=== PATIENT | female | born 1990 | race Caucasian/White ===

== ENCOUNTER 2016-12-13 17:19 | Emergency (ER) | payer SELFPAY ==
[2016-12-13] MEDS ORDERED: NS 0.9% 1000 ML* 2,000 ML IV ONE (19:30)
[2016-12-13] MEDS ORDERED: Ondansetron INJ* 2 MG/ML VIAL IV ONE (19:33)
[2016-12-13] MEDS ORDERED: Ciprofloxacin TAB* 500 MG PO ONE (20:49)
[2016-12-13] MEDS ORDERED: Ondansetron ODT TAB* 4 MG PO ONE (20:49)
[2016-12-13] MEDS ORDERED: Ibuprofen TAB* 600 MG PO ONE (20:50)
[2016-12-13 21:19] VITALS: BP 104/60
--- NOTE | 2016-12-15 16:28 | UC ---
Jossue Crouch Michael, scribed for Helen Youssef MD on 12/13/16 at 1931 . FLU HPI - HPI Summary HPI Summary: 26 y/o female comes to [facility] presenting with a diffuse BURNS that started 2 days ago. The pt reports that the BURNS is constant. She also c/o fever, n/v, nuchal crest neck pain, and constipation for the last week. The constipation was alleviated today. At [facility] her fever was 100.3. She has had a productive cough for the last 2 months. The pt denies sore throat, diarrhea, and dysuria. No one else in the pt's household is sick. - History of Current Complaint Chief Complaint: UCGI Stated Complaint: VOMITING, AND HEADACHE Time Seen by Provider: 12/13/16 19:04 Hx Obtained From: Patient, Medical Records Hx Last Menstrual Period: 1 1/2 MONTHS AGO (IRREGULAR) Onset/Duration: Sudden Onset, Still Present Severity Currently: Moderate Severity Initially: Moderate Pain Intensity: 4 Pain Scale Used: 0-10 Numeric Associated Signs & Symptoms: Positive: Negative - sore throat, diarrhea, and dysuria, Fever, Cough, Headache, Vomiting - nausea. constipation. neck pain. - Allergy/Home Medications Allergies/Adverse Reactions: Allergies Allergy/AdvReac Type Severity Reaction Status Date / Time Sulfa Drugs Allergy Rash Verified 12/13/16 18:10 PMH/Surg Hx/FS Hx/Imm Hx Psychological History Of: Reports: Anxiety - Surgical History Surgical History: None - Family History Known Family History: Positive: Hypertension, Diabetes - Social History Occupation: Employed Full-time Lives: With Family Alcohol Use: None Substance Use Type: None Substance Use Comment - Amount & Last Used: last used 2 months ago Smoking Status (MU): Current Every Day Smoker Type: Cigarettes Amount Used/How Often: 1/2 PPD Review of Systems Constitutional: Fever Respiratory: Cough Gastrointestinal: Vomiting, Other - nausea Musculoskeletal: Other: - neck pain Neurological: Headache All Other Systems Reviewed And Are Negative: Yes Physical Exam Triage Information Reviewed: Yes Appearance: Well-Nourished Vital Signs: Initial Vital Signs Temp 100.3 F 12/13/16 18:07 Pulse 102 12/13/16 18:07 Resp 16 12/13/16 18:07 BP 116/66 12/13/16 18:07 Pulse Ox 98 12/13/16 18:07 Vital Signs Reviewed: Yes Eye Exam: Normal ENT: Positive: Pharyngeal erythema, Other: - uvula midline with no sores. Neck: Positive: Other: - no meningeal signs. K/B negative Respiratory: Positive: Chest non-tender, Wheezing - bilateral, Other: - no dyspnea. no tachypnea. nml respiratory rate. Cardiovascular: Positive: Brisk Capillary Refill, Tachycardia - 102 bpm, Murmur: Sys:Grade _?_/ - 2 out of 6 Abdomen Description: Positive: Other: - no rebound. no hepatosplenomegaly.. Negative: Nontender - mild epigastric tenderness, CVA Tenderness (R), CVA Tenderness (L), Guarding Bowel Sounds: Positive: Hyperactive Musculoskeletal: Positive: Other: - diffuse non-specific lower back tenderness Neurological Exam: Normal - nonfocal. Psychological Exam: Normal - conserving easily Psychological: Positive: Age Appropriate Behavior Skin Exam: Normal - no rashes visible Flu Course/Dx - Course Course Of Treatment: No new problems in CCC. Feels better s/p IVF's. Hungry and thirsty. Able to walk. Requesting to eat. PO challenge good. BURNS better. C/o pain R flank. Reviewed urine dip (see [employer]) - + evidence infection. Cx sent. D/w pt. Sx c/w acute pyelonephritis. UCG neg. Bld glucose 115mg/ dl. Reviewed need for f/u, need to go to ED if worse or new symptoms. Questions answered to the best of my ability. - Differential Dx/Diagnosis Provider Diagnoses: Acute pyelonephritis. Volume depletion. Nausea / vomiting Discharge - Discharge Plan Condition: Improved Disposition: HOME Prescriptions: Ciprofloxacin TAB* [Cipro 500 MG TAB*] 500 mg PO BID #20 tab Ibuprofen TAB* [Motrin TAB* 600 MG] 600 mg PO Q8H PRN #30 tab PRN Reason: Pain Ondansetron ODT TAB* [Zofran Odt TAB*] 4 mg PO Q6H PRN #20 tab.odt PRN Reason: Nausea/Vomiting Patient Education Materials: Dehydration (ED), Fever in Adults (ED), Acute Pyelonephritis (ED) Forms: *Work Release Referrals: Joe Owusu DO [Primary Care Provider] - Additional Instructions: Drink plenty of water. Follow up with your primary care physician, recommend in the next 1-2 weeks. Seek medical attention sooner for worse or new problems. The documentation as recorded by the Jossue guy Michael accurately reflects the service I personally performed and the decisions made by me, Helen Youssef MD.
== END 2016-12-13 21:41 | disposition home or self-care (01) ==
LOC: UCEAST 17:19
DX: N10 Acute pyelonephritis (principal); F41.9 Anxiety disorder, unspecified; F17.210 Nicotine dependence, cigarettes, uncomplicated; E86.9 Volume depletion, unspecified; R11.2 Nausea with vomiting, unspecified; Z88.2 Allergy status to sulfonamides
CPT/HCPCS: 81003; 84702; 87086; 87502; 87651; 96360; 99212; A9270-GY; G0463; J2405

== ENCOUNTER 2017-01-09 17:02 | Emergency (ER) | payer SELFPAY ==
[2017-01-09] MEDS ORDERED: NS 0.9% 1000 ML* 1,000 ML IV ONE ×3 (19:30→23:03)
[2017-01-09] MEDS ORDERED: HYDROmorphone* 1 MG/ML 1 ML SYR IM ONE (19:30)
[2017-01-09] MEDS ORDERED: Ondansetron INJ* 2 MG/ML VIAL IV ONE (20:11)
[2017-01-09] MEDS ORDERED: HYDROmorphone* 1 MG/ML 1 ML SYR IV ONE ×2 (20:11→23:03)
[2017-01-09] MEDS ORDERED: LORazepam INJ* 2 MG/ML 1 ML VIAL IV PUSH ONE ×2 (20:12→23:30)
[2017-01-09 20:52] LABS: Hematocrit 31 % (35-47); Hemoglobin 10.3 g/dl (12.0-16.0); Mean Corpuscular HGB Conc 34 g/dl (31-36); Mean Corpuscular Hemoglobin 29 pg (27-31); Mean Corpuscular Volume 86 fL (80-97); Mean Platelet Volume 7 um3 (7.4-10.4); Red Blood Count 3.56 10^6/ul (4.0-5.4); Red Cell Distribution Width 13 % (10.5-15); White Blood Count 7.2 10^3/ul (3.5-10.8)
[2017-01-09 21:07] LABS: ALT 7 U/L (7-52); AST 12 U/L (13-39); Albumin 3.1 g/dL (3.2-5.2); Alkaline Phosphatase 47 U/L (34-104); Anion Gap 6 mmol/L (2-11); BUN/Creatinine Ratio 12.5 (8-20); Blood Urea Nitrogen 9 mg/dL (6-24); C Reactive Protein 69.52 mg/L (< 5.00); CO2 Carbon Dioxide 29 mmol/L (22-32); Calcium 8.3 mg/dL (8.6-10.3); Chloride 100 mmol/L (101-111); EGFR Non-African American 96.5 (>60); Globulin 3.1 g/dL (2-4); Glucose 108 mg/dL (70-100); Potassium 3.3 mmol/L (3.5-5.0); Sodium 135 mmol/L (133-145); Total Protein 6.2 g/dL (6.4-8.9)
[2017-01-09] MEDS ORDERED: Iohexol 350* (CONTRAST) 500 ML MDV IV ONE (21:12)
--- NOTE | 2017-01-09 22:59 | RAD ---
INDICATION: Accidental injection of heroin in the left upper extremity, now with SD finger tips. COMPARISON: None TECHNIQUE: A CT angiogram of the left forearm and hand was performed with 100 cc of Omnipaque 350. Contiguous axial sections were obtained from the elbow to the fingertips. FINDINGS: Poor image timing prevents reliable evaluation of the left upper extremity arteries. The visualized arteries include the distal brachial through the proximal digital arteries. There is likely adequate filling in the distal brachial, radial and ulnar arteries. Contrast is seen reliably filling at least as far as the proximal digital arteries. There are no drainable subcutaneous fluid collections. There is mild induration of the subcutaneous fat overlying the forearm. IMPRESSION: Grossly the left distal brachial artery, ulnar and radial arteries appear to fill adequately with contrast. Poor bolus timing, positioning and/or patient motion prevents reliable evaluation of the arteries of the Hand. If the patient is exhibiting signs and symptoms of arterial insufficiency to the hand and fingers, prompt evaluation with a vascular specialist for arteriography is advised. Findings and recommendations were discussed over the phone with Dr. Bond at 2250 hours on January 09, 2017
--- NOTE | 2017-01-10 00:03 | ED ---
Jossue Crouch Michael, scribed for Vika Bond MD on 01/09/17 at 1910 . Upper Extremity Pain - HPI Summary HPI Summary: 26 y/o female comes to the ED presenting with left hand swelling and constant pain that started one day ago at 2200. The pt reports that she was injecting heroin intravenously and missed her vein. The left hand pain is aggravated with palpation and nothing alleviates the pain. The left hand pain radiates through the LUE. The pt has a prior hx of heroin use and states using heroin 2x per day. She denies n/v. - History of Current Complaint Chief Complaint: EDExtremityUpper Stated Complaint: LT HAND SWOLLEN Hx Obtained From: Patient, Medical Records Hx Last Menstrual Period: 1 1/2 MONTHS AGO (IRREGULAR) Mechanism Of Injury: Unknown - heroin IV Onset/Duration: Started Days Ago, Still Present Timing: Constant Severity Initially: Moderate Severity Currently: Moderate Pain Location: Hand - left Aggravating Factor(s): Other - palpation Alleviating Factor(s): Nothing Associated Signs & Symptoms: Positive: Swelling, Other - left hand pain. Negative: Nausea, Vomiting - Allergies/Home Medications Allergies/Adverse Reactions: Allergies Allergy/AdvReac Type Severity Reaction Status Date / Time Sulfa Drugs Allergy Rash Verified 01/09/17 17:16 PMH/Surg Hx/FS Hx/Imm Hx Psychiatric History: Reports: Hx Anxiety Infectious Disease History: No Infectious Disease History: Reports: Hx Hepatitis - HEP C Denies: Traveled Outside the [place] in Last 30 Days - Family History Known Family History: Positive: Hypertension, Diabetes - Social History Occupation: Employed Full-time Lives: With Family Alcohol Use: None Substance Use Type: Reports: Heroin Substance Use Comment - Amount & Last Used: last used 2 months ago Smoking Status (MU): Current Every Day Smoker Type: Cigarettes Amount Used/How Often: 1/2 PPD Review of Systems Negative: Vomiting, Nausea Positive: Other - left hand pain Positive: Other - left hand swelling All Other Systems Reviewed And Are Negative: Yes Physical Exam Triage Information Reviewed: Yes Vital Signs On Initial Exam: Initial Vitals Temp Pulse Resp BP Pulse Ox 97.1 F 95 16 105/59 97 01/09/17 17:17 01/09/17 17:17 01/09/17 17:17 01/09/17 17:17 01/09/17 17:17 Vital Signs Reviewed: Yes Appearance: Positive: Well-Appearing, Pain Distress Skin: Positive: Warm, Skin Color Reflects Adequate Perfusion, Dry Eyes: Positive: EOMI, EMILY ENT: Positive: Pharynx normal, TMs normal Neck: Positive: Supple, Nontender Respiratory/Lung Sounds: Positive: Clear to Auscultation, Breath Sounds Present. Negative: Rales, Rhonchi, Wheezes Cardiovascular: Positive: Other - decreased cap refill in all fingers. good radial pulse. not able to palpate ulnar pulse due to pain. Abdomen Description: Positive: Nontender, Soft, Other: - no rebound. Negative: Distended, Guarding Bowel Sounds: Positive: Present Musculoskeletal: Positive: Strength/ROM Intact, Other - right hand swelling. Neurological: Positive: Sensory/Motor Intact, Alert, Oriented to Person Place, Time, CN Intact II-III Psychiatric: Positive: Affect/Mood Appropriate Diagnostics - Vital Signs Vital Signs Temp Pulse Resp BP Pulse Ox 01/09/17 17:17 97.1 F 95 16 105/59 97 - Laboratory Lab Results: Lab Results 01/09/17 01/09/17 01/09/17 Range/Units 20:39 20:39 20:39 WBC 7.2 (3.5-10.8) 10^3/ul RBC 3.56 L (4.0-5.4) 10^6/ul Hgb 10.3 L (12.0-16.0) g/dl Hct 31 L (35-47) % MCV 86 (80-97) fL MCH 29 (27-31) pg MCHC 34 (31-36) g/dl RDW 13 (10.5-15) % Plt Count 277 (150-450) 10^3/ul MPV 7 L (7.4-10.4) um3 Neut % (Auto) 69.5 (38-83) % Lymph % (Auto) 22.9 L (25-47) % [place] % (Auto) 6.0 (1-9) % Eos % (Auto) 1.2 (0-6) % Baso % (Auto) 0.4 (0-2) % Absolute Neuts (auto) 5.0 (1.5-7.7) 10^3/ul Absolute Lymphs (auto) 1.6 (1.0-4.8) 10^3/ul Absolute Monos (auto) 0.4 (0-0.8) 10^3/ul Absolute Eos (auto) 0.1 (0-0.6) 10^3/ul Absolute Basos (auto) 0 (0-0.2) 10^3/ul Absolute Nucleated RBC 0 10^3/ul Nucleated RBC % 0 INR (Anticoag Therapy) (0.89-1.11) Sodium 135 (133-145) mmol/L Potassium 3.3 L (3.5-5.0) mmol/L Chloride 100 L (101-111) mmol/L Carbon Dioxide 29 (22-32) mmol/L Anion Gap 6 (2-11) mmol/L BUN 9 (6-24) mg/dL Creatinine 0.72 (0.51-0.95) mg/dL Est GFR ( Amer) 124.0 (>60) Est GFR (Non-Af Amer) 96.5 (>60) BUN/Creatinine Ratio 12.5 (8-20) Glucose 108 H (70-100) mg/dL Lactic Acid 0.6 (0.5-2.0) mmol/L Calcium 8.3 L (8.6-10.3) mg/dL Total Bilirubin 0.30 (0.2-1.0) mg/dL AST 12 L (13-39) U/L ALT 7 (7-52) U/L Alkaline Phosphatase 47 (34-104) U/L C-Reactive Protein 69.52 H (< 5.00) mg/L Total Protein 6.2 L (6.4-8.9) g/dL Albumin 3.1 L (3.2-5.2) g/dL Globulin 3.1 (2-4) g/dL Albumin/Globulin Ratio 1.0 (1-3) Beta HCG, Quant < 0.60 mIU/mL 01/09/17 Range/Units 20:39 WBC (3.5-10.8) 10^3/ul RBC (4.0-5.4) 10^6/ul Hgb (12.0-16.0) g/dl Hct (35-47) % MCV (80-97) fL MCH (27-31) pg MCHC (31-36) g/dl RDW (10.5-15) % Plt Count (150-450) 10^3/ul MPV (7.4-10.4) um3 Neut % (Auto) (38-83) % Lymph % (Auto) (25-47) % [place] % (Auto) (1-9) % Eos % (Auto) (0-6) % Baso % (Auto) (0-2) % Absolute Neuts (auto) (1.5-7.7) 10^3/ul Absolute Lymphs (auto) (1.0-4.8) 10^3/ul Absolute Monos (auto) (0-0.8) 10^3/ul Absolute Eos (auto) (0-0.6) 10^3/ul Absolute Basos (auto) (0-0.2) 10^3/ul Absolute Nucleated RBC 10^3/ul Nucleated RBC % INR (Anticoag Therapy) 1.21 H (0.89-1.11) Sodium (133-145) mmol/L Potassium (3.5-5.0) mmol/L Chloride (101-111) mmol/L Carbon Dioxide (22-32) mmol/L Anion Gap (2-11) mmol/L BUN (6-24) mg/dL Creatinine (0.51-0.95) mg/dL Est GFR ( Amer) (>60) Est GFR (Non-Af Amer) (>60) BUN/Creatinine Ratio (8-20) Glucose (70-100) mg/dL Lactic Acid (0.5-2.0) mmol/L Calcium (8.6-10.3) mg/dL Total Bilirubin (0.2-1.0) mg/dL AST (13-39) U/L ALT (7-52) U/L Alkaline Phosphatase (34-104) U/L C-Reactive Protein (< 5.00) mg/L Total Protein (6.4-8.9) g/dL Albumin (3.2-5.2) g/dL Globulin (2-4) g/dL Albumin/Globulin Ratio (1-3) Beta HCG, Quant mIU/mL Result Diagrams: 01/09/17 20:39 01/09/17 20:39 Lab Statement: Any lab studies that have been ordered have been reviewed, and results considered in the medical decision making process. - CT CTA LUE CT Interpretation: Positive (See Comments) - Grossly the left distal brachial artery, ulnar and radial arteries appear to fill adequately with contrast. Poor bolus timing, positioning and/or patient motion prevents reliable evaluation of the arteries of the Hand. If the patient is exhibiting signs and symptoms of arterial insufficiency to the hand and fingers, prompt evaluation with a vascular specialist for arteriography is advised. Findings and recommendations were discussed over the phone with Dr. Bond at 2250 hours on January 09, 2017 CT Interpretation Completed By: Radiologist Course/Dx - Course Course Of Treatment: Discussed with Bashir for transfer of patient at 2307. 26 yo female who injected into the ulnar aspect of volar surface of left wrist, likely into the ulnar artery at 10pm on Wed with onset of pain at that time. She says now that her left pointer finger remained white for some time. She arrived her today with the complaint of intractable pain and swelling to left hand with petechiae over the volar surface of the hand and dusky fingertips. A CTA of the upper ext was done but the quality was poor. I have talked with Dr. Nicolas at [facility] who has accepted the pt for transfer to the ED he expressed that the pt has a poor prognosis given that she is over 24 hours out from the injury, I have discussed this at length with the pt. Pt will be going to the ED and Dr. Carrizales accepted her arrival there. - Diagnoses Provider Diagnoses: Digital blood vessels injury Discharge - Discharge Plan Condition: Stable Disposition: TRANS HIGHER LVL OF CARE FAC The documentation as recorded by the Jossue guy Michael accurately reflects the service I personally performed and the decisions made by me, Vika Bond MD.
[2017-01-10] MEDS ORDERED: HYDROmorphone* 1 MG/ML 1 ML SYR IV ONE (01:05)
[2017-01-10] MEDS ORDERED: HYDROmorphone* 2 MG/ML 1 ML SYR ONE (01:06)
[2017-01-10 01:29] VITALS: BP 118/65
== END 2017-01-10 01:23 | disposition short-term general hospital (02) ==
LOC: ED 17:02
DX: S65.902A Unspecified injury of unspecified blood vessel at wrist and hand level of left arm, initial encounter (principal); M79.642 Pain in left hand; R60.0 Localized edema; X58.XXXA Exposure to other specified factors, initial encounter; Y93.9 Activity, unspecified; Y92.9 Unspecified place or not applicable
CPT/HCPCS: 36415; 80053; 83605; 84702; 85025; 85610; 86140; 87040; 96374; 96375; 99284; J1170; J2060; J2405; Q9967

== ENCOUNTER → 2017-04-13 11:52 | Emergency (ER) | payer OTHER ==
[~2017-04-13 11:52] MED LIST: Ibuprofen TAB* 800 MG PO ONE; Lidocaine/Epineph/Tetraca SOL* (LET solution) 4 ML BTL ONE; Lidocaine/Epineph/Tetraca SOL* (LET solution) 4 ML BTL TOPICAL ONE
[2017-04-13 11:55] VITALS: BP 122/72
--- NOTE | 2017-04-13 12:46 | ED ---
Skin Complaint - HPI Summary HPI Summary: Pt here w/ red, swollen, painful lump in Lt armpit x few days. Started as a smaller bump - she shaved over it and seems to be worse since. Has 2 smaller red , tender bumps in lower armpit which seem to have grown together. Hurts to move arm towards body (pressure on sores). No drainage and denies fever, chills. Has tried heat and started augmentin yesterday but is almost out of this medication. No known h/o MRSA but reports facial sores in the past and has had URI over the past month. Has Hep C. NOTE: chart reveals h/o staph aureus. - History of Current Complaint Chief Complaint: EDRashSkinAbscess Time Seen by Provider: 04/13/17 11:59 Stated Complaint: LUMPS UNDER LT ARMPIT Hx Obtained From: Patient Hx Last Menstrual Period: 1 1/2 MONTHS AGO (IRREGULAR) Pain Intensity: 8 - Allergy/Home Medications Allergies/Adverse Reactions: Allergies Allergy/AdvReac Type Severity Reaction Status Date / Time Sulfa Drugs Allergy Rash Verified 01/09/17 17:16 PMH/Surg Hx/FS Hx/Imm Hx Previously Healthy: Yes Endocrine/Hematology History: Denies: Hx Anticoagulant Therapy, Hx Blood Disorders, Hx Diabetes Psychiatric History: Reports: Hx Anxiety Infectious Disease History: No Infectious Disease History: Reports: Hx Hepatitis - HEP C Denies: Hx Human Immunodeficiency Virus (HIV), Hx of Known/Suspected MRSA, Traveled Outside the [place] in Last 30 Days - Family History Known Family History: Positive: Hypertension, Diabetes - Social History Occupation: Employed Full-time Lives: With Family Alcohol Use: None Hx Substance Use: Yes Substance Use Type: Reports: Heroin Substance Use Comment - Amount & Last Used: current 04/13/2017 Hx Tobacco Use: Yes Smoking Status (MU): Current Every Day Smoker Type: Cigarettes Amount Used/How Often: 1/2 PPD Review of Systems Constitutional: Negative Cardiovascular: Negative Respiratory: Negative Gastrointestinal: Negative Positive: no symptoms reported Musculoskeletal: Other - see HPI Skin: Other - see HPI Neurological: Negative Negative: Headache, Weakness, Paresthesia, Numbness Positive: Anxious All Other Systems Reviewed And Are Negative: Yes Physical Exam Triage Information Reviewed: Yes Vital Signs On Initial Exam: Initial Vitals Temp Pulse Resp BP Pulse Ox 97.8 F 93 16 122/72 93 04/13/17 11:53 04/13/17 11:53 04/13/17 11:53 04/13/17 11:53 04/13/17 11:53 Vital Signs Reviewed: Yes Appearance: Positive: Well-Appearing, Well-Nourished, Pain Distress - mild to moderate Skin: Positive: Warm, Dry - 1.5cm erythematous tender hot nodule in Lt axilla - firm w/ central superficial skin peeled away; smaller spot of same quality in more inferior aspect of axilla. no drainage - peripheral erythema to sore Head/Face: Positive: Normal Head/Face Inspection Eyes: Positive: Normal, EOMI ENT: Positive: Hearing grossly normal Respiratory/Lung Sounds: Positive: Breath Sounds Present Cardiovascular: Positive: Pulses are Symmetrical in both Upper and Lower Extremities Musculoskeletal: Positive: Strength/ROM Intact, Pain @ - w/ adduction of Lt shoulder/arm d/t axillary pain Neurological: Positive: Normal, Sensory/Motor Intact, Alert, Oriented to Person Place, Time, CN Intact II-III Psychiatric: Positive: Normal Procedures - Incision and Drainage Site: LT AXILLA Anesthesia: Topical - LET, Local - marcaine w/ epi Instrument(s): Scalpel - #11 - about 3cc of seropurulent drainage Packing: Gauze - iodine 09/18" Diagnostics - Vital Signs Vital Signs Temp Pulse Resp BP Pulse Ox 04/13/17 11:53 97.8 F 93 16 122/72 93 - Laboratory Lab Statement: Any lab studies that have been ordered have been reviewed, and results considered in the medical decision making process. Re-Evaluation - Re-Evaluation First Eval Change: Improved Course/Dx - Diagnoses Provider Diagnoses: Abscess of left axilla Discharge - Discharge Plan Condition: Stable Disposition: HOME Prescriptions: DOXYcycline CAP(*) [DOXYcycline 100MG CAP(*)] 100 mg PO BID #20 cap Ibuprofen TAB* [Motrin TAB* 600 MG] 600 mg PO Q6H PRN #20 tab PRN Reason: Pain Patient Education Materials: Abscess (ED), Incision and Drainage (ED) Referrals: Joe Owusu DO [Primary Care Provider] - Additional Instructions: Keep dressing clean, dry and in place until seen by medical provider for packing change. Apply heat to encourage drainage. Avoid shaving, deodorant application Ibuprofen with food for pain Complete antibiotics as directed Follow-up with PCP, urgent care, ED or needle clinic for wound check and packing change
--- NOTE | 2017-04-14 09:42 | PN ---
Progress Note - Progress Note Date of Service: 04/13/17 Note: diagnosed with abscess of left axilla. positive wound culture results for s. aureus, negative for MRSA. treated wtih doxycycline at d/c. will wait for final culture results. s. aureus susceptible to doxy typically. no further action needed at this time.
== END | disposition home or self-care (01) ==
LOC: ED 11:52
DX: L02.412 Cutaneous abscess of left axilla (principal); F17.210 Nicotine dependence, cigarettes, uncomplicated; F41.9 Anxiety disorder, unspecified
CPT/HCPCS: 10060; 87070; 87077; 87186; 87205; 87640; 87641; 99282; A9270-GY

== ENCOUNTER 2017-04-15 19:24 | Emergency (ER) | payer OTHER ==
--- NOTE | 2017-04-16 01:08 | ED ---
ED Suture/Wound Check - HPI Summary HPI Summary: 26 female presents with request for a wound recheck. Had a left axillary abscess drained on 04/13/17. Was told to come back to have it rechecked and packing changed. Denies any complaints besides that it is still mildly tender and draining. It also feels very firm. States abscess looks much better. Has been taking doxycycline. No complaints at this time. No PMHx. - History Of Current Complaint Chief Complaint: EDGeneral Stated Complaint: ABSCESS Time Seen by Provider: 04/15/17 23:08 Hx Obtained From: Patient Onset/Duration: Sudden Onset Surgical Site: left axilla Severity: Mild Pain Intensity: 3 Pain Scale Used: 0-10 Numeric Procedure Type: incise and drainage Surgery Date: 04/13/17 Full Body (No Head): 1 - I&D abscess - Allergies/Home Medications Allergies/Adverse Reactions: Allergies Allergy/AdvReac Type Severity Reaction Status Date / Time Sulfa Drugs Allergy Rash Verified 01/09/17 17:16 PMH/Surg Hx/FS Hx/Imm Hx Endocrine/Hematology History: Denies: Hx Anticoagulant Therapy, Hx Blood Disorders, Hx Diabetes Psychiatric History: Reports: Hx Anxiety - Surgical History Surgery Procedure, Year, and Place: n/a - Immunization History Immunizations Up to Date: Yes Infectious Disease History: Reports: Hx Hepatitis - HEP C Denies: Hx Human Immunodeficiency Virus (HIV), Hx of Known/Suspected MRSA, Traveled Outside the in Last 30 Days - Family History Known Family History: Positive: Hypertension, Diabetes - Social History Alcohol Use: None Hx Substance Use: Yes Substance Use Type: Reports: Heroin Substance Use Comment - Amount & Last Used: current 04/13/2017 Hx Tobacco Use: Yes Smoking Status (MU): Current Every Day Smoker Type: Cigarettes Amount Used/How Often: 1/2 PPD Review of Systems Constitutional: Negative Cardiovascular: Negative Respiratory: Negative Musculoskeletal: Negative Positive: Other - abscess All Other Systems Reviewed And Are Negative: Yes Physical Exam Triage Information Reviewed: Yes Vital Signs On Initial Exam: Initial Vitals Temp Pulse Resp BP Pulse Ox 98.9 F 82 16 108/64 96 04/15/17 20:20 04/15/17 20:20 04/15/17 20:20 04/15/17 20:20 04/15/17 20:20 Vital Signs Reviewed: Yes Appearance: Positive: Well-Appearing, No Pain Distress, Well-Nourished Skin: Positive: Warm, Skin Color Reflects Adequate Perfusion, Dry, Erythema @ - left axilla minimal to no erythema, abscess appears to be healing nicely, no drainage or signs of infection on exam, minimal tenderness, packing in place, was removed and new packing was applied due to depth of abscess. non-fluctuant. firm dime size surrounding incision. much improved. rest of skin exam normal. Negative: Cold, Numb, Tender Head/Face: Positive: Normal Head/Face Inspection Eyes: Positive: Conjunctiva Clear ENT: Positive: Hearing grossly normal Neck: Positive: Supple, Nontender Respiratory/Lung Sounds: Positive: Clear to Auscultation, Breath Sounds Present. Negative: Rales, Rhonchi, Wheezes Cardiovascular: Positive: Normal, RRR, Pulses are Symmetrical in both Upper and Lower Extremities. Negative: Murmur, Rub Musculoskeletal: Positive: Normal, Strength/ROM Intact Neurological: Positive: Normal, Sensory/Motor Intact, Alert, Oriented to Person Place, Time Psychiatric: Positive: Affect/Mood Appropriate, Anxious - [place] Coma Scale Coma Scale Total: 15 Procedures - Procedure Summary Procedure Summary: packing was removed for previous I&D of left axilla. abscess was flushed with normal saline. new packing was applied without complication. dressed. patient tolerated procedure well. Diagnostics - Vital Signs Vital Signs Temp Pulse Resp BP Pulse Ox 04/15/17 23:16 98.2 F 72 16 104/72 98 04/15/17 22:20 98.2 F 72 16 104/42 99 04/15/17 20:20 98.9 F 82 16 108/64 96 - Laboratory Lab Statement: Any lab studies that have been ordered have been reviewed, and results considered in the medical decision making process. Course/Dx - Course Course Of Treatment: abscess was drained on 04/13/17. appeared to be healing nicely, no fluctuance or erythema. no drainage. packing was replaced due to depth of abscess. patient tolerated procedure well. was flushed before inserting new packing. dressed. no concern or need for additionaly drainage. have packing removed in 2 days. continue antibiotics. aware of worsening signs and symptoms to watch out for. follow up. ibuprofen for pain if desired. - Differential Diagnoses Differential Diagnoses: Abscess, Cellulitis, Healing Wound, Other - Clinical Impression Provider Diagnoses: Healing wound, Encounter for wound re-check, Encounter for change or removal of wound dressing Discharge - Discharge Plan Condition: Stable Disposition: HOME Patient Education Materials: Abscess Follow-up (ED) Additional Instructions: Have packing removed in 2 days. Keep clean and dry, do not touch. Continue antibiotics until entire dose is finished as directed. Follow up with PCP. If worsening signs or symptoms develop please return.
[2017-04-16 01:25] VITALS: BP 106/74
== END 2017-04-16 01:25 | disposition home or self-care (01) ==
LOC: ED 19:24
DX: L02.412 Cutaneous abscess of left axilla (principal); Z48.01 Encounter for change or removal of surgical wound dressing; Z88.2 Allergy status to sulfonamides; F41.9 Anxiety disorder, unspecified; F17.210 Nicotine dependence, cigarettes, uncomplicated
CPT/HCPCS: 99281

== ENCOUNTER 2017-12-31 20:31 | Emergency (ER) | payer OTHER ==
[2017-12-31 20:47] VITALS: BP 119/62
--- NOTE | 2017-12-31 21:56 | RAD ---
INDICATION: Neck pain status post injury. COMPARISON: There are no prior studies available for comparison. TECHNIQUE: A single lateral view of the cervical spine was obtained. FINDINGS: C1-C7 are visualized. The vertebra are in normal alignment. No prevertebral soft tissue swelling or fracture is seen. There is mild degenerative disc disease at the C5-C6 level. IMPRESSION: LIMITED STUDY, NO EVIDENCE FOR FRACTURE.
--- NOTE | 2017-12-31 22:03 | RAD ---
INDICATION: Neck pain. COMPARISON: Comparison is made with a prior x-ray study of the cervical spine of the same date. TECHNIQUE: 5 views of the cervical spine were obtained including lateral, oblique, AP, open-mouth odontoid views. FINDINGS: C1-C7 are visualized. The vertebra are in normal alignment. No prevertebral soft tissue swelling or fracture is seen. There is mild degenerative disc disease at the C5-C6 level. IMPRESSION: NO EVIDENCE FOR FRACTURE OR SUBLUXATION.
--- NOTE | 2017-12-31 22:36 | UC ---
Neck Pain HPI - HPI Summary HPI Summary: 27 y/o female presents to the urgent care c/o neck pain s/p injury during sexual intercourse sine last night. Pt reports she had her head between the bed frame adn the wall while doing sexual intercourse. Then 2 hrs later she started w/ neck pain she took 2 tabs PO of ibuprofen which helped. This morning when she woke upp her pain was radiating to her upper back. Pain is dull constant 6/10, specially w/ flexion. - History of Current Complaint Chief Complaint: UCGeneralIllness Stated Complaint: NECK AND BACK INJURY Time Seen by Provider: 12/31/17 22:25 Hx Obtained From: Patient Hx Last Menstrual Period: 12/05/17 Pain Intensity: 6 - Allergies/Home Medications Allergies/Adverse Reactions: Allergies Allergy/AdvReac Type Severity Reaction Status Date / Time Sulfa (Sulfonamide Allergy Hives Verified 12/31/17 20:48 Antibiotics) PMH/Surg Hx/FS Hx/Imm Hx Other History Of: Negative For: Anticoagulant Therapy - Surgical History Surgical History: None Surgery Procedure, Year, and Place: n/a - Family History Known Family History: Positive: Hypertension, Diabetes - Social History Alcohol Use: None Substance Use Type: Heroin Substance Use Comment - Amount & Last Used: stopped 05/26/2017 Smoking Status (MU): Current Every Day Smoker Type: Cigarettes Amount Used/How Often: 1/2 PPD Physical Exam - Summary Physical Exam Summary: Vital Signs Reviewed: Yes General: well developed, well nourished female sitting in the examining w/o any apparent distress. Eyes: Positive: Conjunctiva Clear - -Eyes: sclera and conjunctiva clear, corneas grossly clear, PEERLA, EOMI, no nystagmus, no ptosis,no photophobia, normal fundoscopic exam, normal visual singh,, Other: - -Head:scalp atraumatic , NT, no trigger points ENT: Positive: Normal ENT inspection, Hearing grossly normal, Pharynx normal, TMs normal - B/L external ear canals clear, Other: - No TMJ tenderness. Negative : Nasal congestion, Nasal drainage, Tonsillar swelling, Tonsillar exudate Dental Exam: Normal Neck: no surface trauma, open wounds, soft tissue, Point tenderness over the RT side of neck w/ spasm; trachea midline, NT over larynx. No subcutaneous emphysema or crepitus. No bony tenderness, step-off or deformity to firm palpation at posterior midline. Decrease ROM with limitation to RT side due to pain;No meningeal signs, no Kernig's or brudzinskis signs. Respiratory: Positive: Chest non-tender, Lungs clear, Normal breath sounds, No respiratory distress Cardiovascular: Positive: RRR, No Murmur, Pulses Normal, Brisk Capillary Refill Abdomen Description: Positive: Nontender, No Organomegaly, Soft. Negative: CVA Tenderness (R), CVA Tenderness (L) Bowel Sounds: Positive: Present Musculoskeletal: Positive: Strength Intact, ROM Intact, No Edema Neurological: Positive: Alert - A&OX3, CNII-XII WNL, speech, memory and expression WNL,, Muscle Tone Normal - Muscle strength 5/5 in both upper and lower extremities. Normal gait, negative Romberg test and good coordination finger to nose, heel to dewitt WNL, sensation intact. Reflexes WNL Psychological Exam: Normal Skin: Positive: warm and dry , no rashes or petechia observed Triage Information Reviewed: Yes Vital Signs: Initial Vital Signs Temp 97.6 F 12/31/17 20:38 Pulse 82 12/31/17 20:38 Resp 16 12/31/17 20:38 BP 119/62 12/31/17 20:38 Pulse Ox 100 12/31/17 20:38 Neck Pain Course/Dx - Differential Dx/Diagnosis Differential Dx/HQI/PQRI: Cervical Fracture, Sprain, Strain, Torticollis Provider Diagnoses: 1- Acute neck pain s/p injury. 2-cervical degenerative disce disease. 3- Neck Muscle spasm Discharge - Discharge Plan Condition: Critical Disposition: HOME Prescriptions: Cyclobenzaprine TAB* [Flexeril 10 MG TAB*] 10 mg PO TID PRN #20 tab PRN Reason: Spasms - Neck Naproxen TAB* [Naprosyn 250 mg TAB*] 250 mg PO Q8H PRN #30 tab PRN Reason: neck pain predniSONE TAB* [Deltasone TAB*] 20 mg PO DAILY #8 tab Patient Education Materials: Degenerative Disc Disease (ED), Acute Neck Pain ( ED) Forms: *School Release Referrals: Joe Owusu DO [Primary Care Provider] - Narinder Fulton MD [Medical Doctor] - 1 Week Additional Instructions: 1- Please take Naproxen PO as directed after meals for pain. 2- Take Flexeril PO as directed for muscle spasm. Please do not drive while taking the medication. 3- Wear the soft collar to alleviate symptoms . Avoid strenuous exercise of heavy lifting. 4- Please follow up with Neuro[facility] Dr Goyal or your PCP in 1 week if not improvement of symptoms, for further management. - Billing Disposition and Condition Condition: CRITICAL Disposition: HOME
[2017-12-31] MEDS ORDERED: Naproxen TAB* 250 MG PO ONE (22:40)
[2017-12-31] MEDS ORDERED: Cyclobenzaprine TAB* 10 MG PO ONE (22:41)
[2017-12-31] MEDS ORDERED: predniSONE TAB* 20 MG PO ONE (22:42)
== END 2017-12-31 23:04 | disposition home or self-care (01) ==
LOC: UCEAST 20:31
DX: M54.2 Cervicalgia (principal); M50.322 Other cervical disc degeneration at C5-C6 level; M62.838 Other muscle spasm; Z88.2 Allergy status to sulfonamides; F17.210 Nicotine dependence, cigarettes, uncomplicated
CPT/HCPCS: 72020; 72050; 99212; A9270-GY; G0463; J7512

== ENCOUNTER 2018-01-26 11:21 | Emergency (ER) | payer OTHER ==
--- NOTE | 2018-01-26 11:32 | UC ---
Skin Complaint HPI - HPI Summary HPI Summary: 27 yo female presents with multiple complaints 1) She tells me that for the last 2 months she has had coughing and intermittent SOB. Cough is productive at times. She has been seen for this and told that her lungs were "clear" each time. 2) She is requesting a test today 3) Rash to right upper chest that began 3 days ago. Started as itchy and mildly painful. Now just itchy. She is still smoking daily Denies fever, chills, sore throat, sinus symptoms, chest pain, abdominal pain, n /v/d/c. - History of Current Complaint Chief Complaint: UCRespiratory Time Seen by Provider: 01/26/18 11:32 Stated Complaint: SKIN COMPLAINT URI Hx Obtained From: Patient Hx Last Menstrual Period: 12/05/17 Onset Severity: Mild Current Severity: Mild Pain Intensity: 3 Pain Scale Used: 0-10 Numeric - Allergy/Home Medications Allergies/Adverse Reactions: Allergies Allergy/AdvReac Type Severity Reaction Status Date / Time Sulfa (Sulfonamide Allergy Hives Verified 01/26/18 11:34 Antibiotics) Home Medications: Home Medications Buprenorphine HCl/Naloxone HCl [Suboxone] 1 mis SL 01/26/18 [History] Review of Systems Constitutional: Negative Skin: Rash Eyes: Negative ENT: Negative Respiratory: Cough Cardiovascular: Negative Gastrointestinal: Negative Genitourinary: Negative Neurovascular: Negative Neurological: Negative Psychological: Negative All Other Systems Reviewed And Are Negative: Yes PMH/Surg Hx/FS Hx/Imm Hx - Additional Past Medical History Additional PMH: Hx of drug abuse Previously Healthy: Yes Other History Of: Negative For: Anticoagulant Therapy - Surgical History Surgical History: None Surgery Procedure, Year, and Place: n/a - Family History Known Family History: Positive: Hypertension, Diabetes - Social History Lives: With Family Alcohol Use: None Substance Use Type: Heroin Substance Use Comment - Amount & Last Used: stopped 05/26/2017 Smoking Status (MU): Current Every Day Smoker Type: Cigarettes Amount Used/How Often: 1/2 PPD Physical Exam - Summary Physical Exam Summary: GENERAL: NAD. WDWN. No pain distress. SKIN: Right upper chest: 4.0cm cluster of mildly erythematous blister-like rash. NTTP. Does not cross midline. No drainage, streaking, or bleeding. HEENT: Head: AT/NC Eyes: Conjunctiva clear without inflammation or discharge. Ears: Hearing grossly normal. TMs intact, no bulging, erythema, or edema. Nose: Nasal mucosa pink and moist. NTTP maxillary and frontal sinus. Throat: Posterior oropharynx without exudates, erythema, or tonsillar enlargement. Uvula midline. NECK: Supple. Nontender. No lymphadenopathy. CHEST: Moderate wheezing throughout. No r/r. No accessory muscle use. Breathing comfortably and in no distress. CV: RRR. Without m/r/g. Pulses intact. Brisk cap refill. NEURO: Alert. CN II-XII grossly intact. PSYCH: Age appropriate behavior. Triage Information Reviewed: Yes Vital Signs: Vital Signs: Temp Pulse Resp BP Pulse Ox 98.4 F 80 18 100/52 96 01/26/18 11:29 01/26/18 11:29 01/26/18 11:29 01/26/18 11:29 01/26/18 11:29 Course/Dx - Course Course Of Treatment: Suspect shingles to right chest. URI. Urine preg negative. CXR: IMPRESSION: NO EVIDENCE FOR ACTIVE CARDIOPULMONARY DISEASE. Duoneb: Feels improved. Easier work of breathing. Decreased wheezing throughout. - Diagnoses Provider Diagnoses: Shingles right chest. URI Discharge - Sign-Out/Discharge Documenting (check all that apply): Discharge/Admit/Transfer - Discharge Plan Condition: Stable Disposition: HOME Prescriptions: Albuterol HFA INHALER* [Ventolin HFA Inhaler*] 1 puff INH Q6H PRN #1 mdi PRN Reason: Cough Azithromycin TAB* [Zithromax TAB (Z-CHAUNCEY) 250 mg #6 tabs] 2 tab PO .TODAY, THEN 1 DAILY #1 chauncey Hydrocortisone 1% CREAM* [Hytone Cream 1%*] 1 applic TOPICAL BID #1 tube ValACYclovir (*) [Valtrex 1 GM(*)] 1 gm PO TID #21 tab Patient Education Materials: Shingles (ED), Upper Respiratory Infection (ED) Referrals: Joe Owusu DO [Primary Care Provider] - Narinder Fulton MD [Medical Doctor] - As Soon As Possible Additional Instructions: If you develop a fever, shortness of breath, chest pain, new or worsening symptoms - please call your PCP or go to the ED. - Billing Disposition and Condition Condition: STABLE Disposition: HOME
[2018-01-26 11:34] VITALS: BP 100/52
[2018-01-26] MEDS ORDERED: Albuterol/Ipratropium NEB.SOL* Albuterol 2.5 MG/Ipratropium 0.5 MG 3 ML INH ONE (11:46)
--- NOTE | 2018-01-26 12:35 | RAD ---
INDICATION: Cough. COMPARISON: Comparison is made with a prior study from June 01, 2013. TECHNIQUE: Dual-energy PA and lateral views of the chest were obtained. FINDINGS: The heart is within normal limits in size. Mediastinal and hilar contours appear within normal limits. The lungs are clear. No pleural effusion is present. IMPRESSION: NO EVIDENCE FOR ACTIVE CARDIOPULMONARY DISEASE.
== END 2018-01-26 12:56 | disposition home or self-care (01) ==
LOC: UCEAST 11:21
DX: B02.9 Zoster without complications (principal); J06.9 Acute upper respiratory infection, unspecified; Z32.02 Encounter for pregnancy test, result negative; Z88.2 Allergy status to sulfonamides; F17.210 Nicotine dependence, cigarettes, uncomplicated
CPT/HCPCS: 71046; 84702; 99212; A9270-GY; G0463

== ENCOUNTER 2018-02-24 14:03 | Emergency (ER) | payer OTHER ==
[2018-02-24 14:15] VITALS: BP 104/42
--- NOTE | 2018-02-24 14:19 | UC ---
Complaint Female HPI - HPI Summary HPI Summary: 27 yo female presents with urinary pain, frequency, and urgency for the past 3 weeks intermittently. Throughout this time she has also noticed vaishnavi blood in her urine on 3 separate occasions. In addition, almost everytime she urinates she does not feel she has emptied her bladder completely. She took a test a few days ago and it was negative. No hx of kidney stone. Denies fever, chills, SOB, chest pain, abdominal pain, n/v/d/c, flank pain, vaginal discharge , or concern for STDs. - History Of Current Complaint Chief Complaint: UCGU Stated Complaint: URINARY ISSUE Time Seen by Provider: 02/24/18 14:19 Hx Obtained From: Patient Hx Last Menstrual Period: Due tomorrow/next day Onset/Duration: Gradual Onset Timing: Intermittent Severity Initially: Mild Severity Currently: Mild Pain Intensity: 3 Pain Scale Used: 0-10 Numeric - Allergies/Home Medications Allergies/Adverse Reactions: Allergies Allergy/AdvReac Type Severity Reaction Status Date / Time Sulfa (Sulfonamide Allergy Hives Verified 02/24/18 14:15 Antibiotics) Home Medications: Home Medications Omeprazole CAP* [Prilosec CAP* 20 MG] 1 cap PO DAILY 02/24/18 [History Confirmed 02/24/18] PMH/Surg Hx/FS Hx/Imm Hx Respiratory History: Asthma GI/ History: Gastroesophageal Reflux Other History Of: Negative For: Anticoagulant Therapy - Surgical History Surgical History: None Surgery Procedure, Year, and Place: n/a - Family History Known Family History: Positive: Hypertension, Diabetes - Social History Lives: With Family Alcohol Use: None Substance Use Type: Heroin Substance Use Comment - Amount & Last Used: stopped 05/26/2017 Smoking Status (MU): Current Every Day Smoker Type: Cigarettes Amount Used/How Often: 1/2 PPD Review of Systems Constitutional: Negative Skin: Negative Respiratory: Negative Cardiovascular: Negative Gastrointestinal: Negative Genitourinary: Dysuria, Hematuria, Frequency, Urgency Neurovascular: Negative Musculoskeletal: Negative Neurological: Negative Psychological: Negative All Other Systems Reviewed And Are Negative: Yes Physical Exam - Summary Physical Exam Summary: GENERAL: NAD. WDWN. No pain distress. SKIN: No rashes, sores, lesions, or open wounds. NECK: Supple. Nontender. No lymphadenopathy. CHEST: CTAB. No r/r/w. No accessory muscle use. Breathing comfortably and in no distress. CV: RRR. Without m/r/g. Pulses intact. Brisk cap refill. ABDOMEN: Mild right flank tenderness. Soft. NTTP. No distention or guarding. No organomegaly. No CVA tenderness. Bowel sounds present NEURO: Alert. CN II-XII grossly intact. PSYCH: Age appropriate behavior. Triage Information Reviewed: Yes Vital Signs: Initial Vital Signs Temp 97.9 F 02/24/18 14:10 Pulse 70 02/24/18 14:10 Resp 18 02/24/18 14:10 BP 104/42 02/24/18 14:10 Pulse Ox 98 02/24/18 14:10 Complaint Female Dx - Course Course Of Treatment: UA: negative. CT:IMPRESSION: 1. NO RENAL CALCULI OR EVIDENCE FOR HYDRONEPHROSIS. 2. INCREASED DENSITY IN THE DEPENDENT PORTION OF THE GALLBLADDER SUGGESTIVE OF SLUDGE OR. NONCALCIFIED GALLSTONES. 3. MILD HEPATOMEGALY, UNCHANGED. 4. 3 CM LEFT OVARIAN CYST AND SMALL AMOUNT OF FREE INTRAPERITONEAL FLUID IN THE PELVIS. I will have her f/u with Urology as I am unable to distinguish an identifiable cause for her symptoms. Also have her f/u with OBGYN for her ovarian cyst. Go to ED if symptoms worsen. - Differential Dx/Diagnosis Provider Diagnoses: Hematuria. Dysuria. Ovarian cyst Discharge - Sign-Out/Discharge Documenting (check all that apply): Discharge/Admit/Transfer - Discharge Plan Condition: Stable Disposition: HOME Patient Education Materials: Hematuria (ED) Referrals: Joe Owusu DO [Primary Care Provider] - Rj Nicole MD [Medical Doctor] - As Soon As Possible Additional Instructions: If you develop a fever, shortness of breath, chest pain, new or worsening symptoms - please call your PCP or go to the ED. 1) Please call Urology at the number below to schedule a follow up appointment as soon as possible - Billing Disposition and Condition Condition: STABLE Disposition: Home
--- NOTE | 2018-02-24 15:24 | RAD ---
INDICATION: Right flank and right lower quadrant pain, hematuria. COMPARISON: Comparison is made with a prior CT of the abdomen and pelvis from May 11, 2016. TECHNIQUE: A CT scan of the abdomen and pelvis was performed without intravenous and without oral contrast. Contiguous axial sections were obtained from the lung bases through the symphysis pubis. Images were reconstructed in the coronal and sagittal planes. FINDINGS: The lung bases are clear. No pleural effusion is present. The liver is mildly enlarged. No focal abnormality is seen on this noncontrast study. No calcified gallstones are seen. There is mild increased density present dependently within the gallbladder suspicious for sludge or noncalcified gallstones. The pancreas appears to be within normal limits. The adrenal glands and kidneys are normal in size. No renal calculi or hydronephrosis is seen. No ureteral or bladder calculi are seen. The aorta is normal in caliber without significant calcific plaque. No significant enlarged retroperitoneal lymph nodes are seen. The stomach, small and large bowel appear nondistended. The appendix is within normal limits. There are mild scattered diverticuli within the colon. There is no evidence for diverticulitis or colitis. The uterus is retroverted and normal in size. There appears be a 3.1 cm left ovarian cyst present. There is a small amount of free intraperitoneal fluid present in the dependent portion of the pelvis. No free intraperitoneal air is seen. No significant focal osseous abnormality is seen. IMPRESSION: 1. NO RENAL CALCULI OR EVIDENCE FOR HYDRONEPHROSIS. 2. INCREASED DENSITY IN THE DEPENDENT PORTION OF THE GALLBLADDER SUGGESTIVE OF SLUDGE OR NONCALCIFIED GALLSTONES. 3. MILD HEPATOMEGALY, UNCHANGED. 4. 3 CM LEFT OVARIAN CYST AND SMALL AMOUNT OF FREE INTRAPERITONEAL FLUID IN THE PELVIS.
== END 2018-02-24 15:55 | disposition home or self-care (01) ==
LOC: UCEAST 14:03
DX: R31.9 Hematuria, unspecified (principal); R30.0 Dysuria; N83.202 Unspecified ovarian cyst, left side; R16.0 Hepatomegaly, not elsewhere classified; J45.909 Unspecified asthma, uncomplicated; K21.9 Gastro-esophageal reflux disease without esophagitis; Z88.2 Allergy status to sulfonamides; F17.210 Nicotine dependence, cigarettes, uncomplicated; Z82.49 Family history of ischemic heart disease and other diseases of the circulatory system; Z83.3 Family history of diabetes mellitus
CPT/HCPCS: 36415; 74176; 81003; 99211; G0463

== ENCOUNTER 2018-11-05 19:39 | Emergency (ER) | payer OTHER ==
[2018-11-05 19:55] VITALS: BP 131/65
--- NOTE | 2018-11-05 20:33 | UC ---
Abdominal Pain Female HPI - HPI Summary HPI Summary: Patient presents to urgent care with 2 days progressive urinary frequency, dysuria, and nausea. Patient states tonight she passed a small blood clot with urination. Patient with a history of UTIs and this feels similar. Patient states she's got some mild low back pain bilaterally. No fevers or chills. No vomiting. No vaginal itching, odor, discharge. Concern for STD. Patient able to eat and drink okay. Patient does not remember the last time she was on antibiotics. Patient states she's not immunocompromised. Patient states she is not her last period was yesterday. Patient is on Suboxone as well as omeprazole. Medication list reviewed - History of Current Complaint Chief Complaint: UCGU Stated Complaint: URINARY COMPLAINT Time Seen by Provider: 11/05/18 20:06 Hx Obtained From: Patient, Medical Records Hx Last Menstrual Period: 5 days ago Onset/Duration: Gradual Onset Timing: Constant Severity Initially: Mild Severity Currently: Mild Pain Intensity: 3 Allergies/Adverse Reactions: Allergies Allergy/AdvReac Type Severity Reaction Status Date / Time Sulfa (Sulfonamide Allergy Hives Verified 11/05/18 19:55 Antibiotics) PMH/Surg Hx/FS Hx/Imm Hx Previously Healthy: Yes Other History Of: Negative For: Anticoagulant Therapy - Surgical History Surgical History: None Surgery Procedure, Year, and Place: n/a - Family History Known Family History: Positive: Hypertension, Diabetes, Non-Contributory - Social History Occupation: Employed Full-time Lives: With Family Alcohol Use: None Substance Use Type: Heroin Substance Use Comment - Amount & Last Used: stopped 05/26/2017 Smoking Status (MU): Current Every Day Smoker Type: Cigarettes Amount Used/How Often: 1/2 PPD Review of Systems All Other Systems Reviewed And Are Negative: Yes Constitutional: Positive: Negative Gastrointestinal: Positive: Nausea Genitourinary: Positive: Dysuria, Hematuria, Frequency, Urgency. Negative: Vaginal/Penile Burning, Vaginal/Penile Discharge, Vaginal/Penile Pain, Vaginal/ Penile Tenderness Physical Exam - Summary Physical Exam Summary: Vital Signs Reviewed: Yes A+Ox3, no distress Eyes: Conjunctiva Clear ENT: Hearing grossly normal neck: supple Respiratory: Positive: No respiratory distress, No accessory muscle use Cardiovascular: skin color reflect adequate perfusion abd soft mild suprapubic discomfort soft + Bs no guarding no CVA Musculoskeletal Exam: NICHOLS x 4 without difficulty Neurological: Positive: Alert, ambulatory without difficulty Psychological: Positive: Normal Response To Family Skin: Positive: no rash, no ecchymosis Triage Information Reviewed: Yes Vital Signs: Initial Vital Signs Temp 98.8 F 11/05/18 19:48 Pulse 71 11/05/18 19:48 Resp 16 11/05/18 19:48 BP 131/65 11/05/18 19:48 Pulse Ox 100 11/05/18 19:48 Abd Pain Female Course/Dx - Course Course Of Treatment: Patient presents with 2 days of progressive dysuria, frequency, and site hematuria. Patient with mild lower abdominal pain and back pain. No fevers chills no vomiting. On exam vital signs are stable. Patient does have mild superpubic tenderness. Patient urine consistent with UTI. We' ll start patient on Keflex. Pyridium. Hydrate. Return precautions. Patient comfortable in agreement with plan. Reviewed patient's culture from 2015 pansensitive - Differential Dx/Diagnosis Provider Diagnosis: UTI (urinary tract infection) Discharge - Sign-Out/Discharge Documenting (check all that apply): Patient Departure All imaging exams completed and their final reports reviewed: No Studies - Discharge Plan Condition: Stable Disposition: HOME Prescriptions: Cephalexin CAP* [Keflex 500 CAP*] 500 mg PO BID #20 cap Phenazopyridine TAB* [Pyridium 100 mg TAB*] 100 mg PO TID PRN #9 tab PRN Reason: burning with urination Patient Education Materials: Urinary Tract Infection in Women (ED) Forms: *Work Release Referrals: Joe Owusu, [Primary Care Provider] - Additional Instructions: - stay well hydrated - drink plenty of non-alcoholic, non caffinated beverages - your urine will be further tested - if you require any changes to your treatment, we will contact you - this usually take 2 days - Contact your primary doctor to arrange a follow-up appointment next week. Contact your doctor or return with questions or concerns - Take your antibiotics exactly as prescribed until gone - Take pyridium as prescribed for discomfort. This will make your urine blaze orange - this is normal - Okay to alternate ibuprofen (Advil, Motrin) and Tylenol every 3 hours for pain. Take with food - Call your doctor or return with questions or concerns - Billing Disposition and Condition Condition: STABLE Disposition: Home
== END 2018-11-05 20:32 | disposition home or self-care (01) ==
LOC: UCEAST 19:39
DX: N39.0 Urinary tract infection, site not specified (principal); F17.210 Nicotine dependence, cigarettes, uncomplicated; Z88.2 Allergy status to sulfonamides
CPT/HCPCS: 81003; 87077; 87086; 87186; 99212; G0463

== ENCOUNTER 2018-11-21 21:47 | Emergency (ER) | payer OTHER ==
[2018-11-21] MEDS ORDERED: Al Hydrox/Mg Hydrox/Simet LIQ* 30 ML UDC PO ONE (23:41)
[2018-11-21] MEDS ORDERED: Lidocaine 2% VISCOUS* 15 ML UDC PO ONE (23:41)
--- NOTE | 2018-11-21 23:46 | ED ---
Abdominal Pain/Female - HPI Summary HPI Summary: This patient is a 28 year old F presenting to [facility] with a chief complaint of intermittent lower abdominal pain since 3 days ago. The patient rates the pain 6 /10 in severity. Patient denies changes in appetite. The pain has gotten better in the ED. - History of Current Complaint Chief Complaint: EDAbdPain Stated Complaint: "ABD PAINS" PER PT Time Seen by Provider: 11/21/18 23:38 Hx Obtained From: Patient Hx Last Menstrual Period: 5 days ago Onset/Duration: Gradual Onset, Lasting Days - 3 Severity Currently: Moderate Pain Intensity: 6 Pain Scale Used: 0-10 Numeric Location: Epigastric Allergies/Adverse Reactions: Allergies Allergy/AdvReac Type Severity Reaction Status Date / Time Sulfa (Sulfonamide Allergy Hives Verified 11/21/18 21:51 Antibiotics) PMH/Surg Hx/FS Hx/Imm Hx Endocrine/Hematology History: Denies: Hx Anticoagulant Therapy, Hx Blood Disorders, Hx Diabetes Cardiovascular History: Reports: Other Cardiovascular Problems/Disorders - murmur Psychiatric History: Reports: Hx Anxiety - Surgical History Surgery Procedure, Year, and Place: n/a Infectious Disease History: Yes Infectious Disease History: Reports: Hx Hepatitis - HEP C Denies: Hx Human Immunodeficiency Virus (HIV), Hx of Known/Suspected MRSA, Traveled Outside the [place] in Last 30 Days - Family History Known Family History: Positive: Hypertension, Diabetes - Social History Alcohol Use: None Hx Substance Use: Yes Substance Use Type: Reports: Heroin Substance Use Comment - Amount & Last Used: stopped 05/26/2017 Hx Tobacco Use: Yes Smoking Status (MU): Current Every Day Smoker Type: Cigarettes Amount Used/How Often: 1/2 PPD Review of Systems Negative: Fever Positive: Abdominal Pain. Negative: Other - changes in appetite All Other Systems Reviewed And Are Negative: Yes Physical Exam - Summary Physical Exam Summary: VITAL SIGNS: Reviewed. GENERAL: Patient is a well-developed and nourished female who is lying comfortable in the stretcher. Patient is not in any acute respiratory distress. HEAD AND FACE: No signs of trauma. No ecchymosis, hematomas or skull depressions. No sinus tenderness. EYES: PERRLA, EOMI x 2, No injected conjunctiva, no nystagmus. EARS: Hearing grossly intact. Ear canals and tympanic membranes are within normal limits. MOUTH: Oropharynx within normal limits. NECK: Supple, trachea is midline, no adenopathy, no JVD, no carotid bruit, no c- spine tenderness, neck with full ROM. CHEST: Symmetric, no tenderness at palpation LUNGS: Clear to auscultation bilaterally. No wheezing or crackles. CVS: Regular rate and rhythm, S1 and S2 present, no murmurs or gallops appreciated. ABDOMEN: Soft. Epigastric tenderness. No signs of distention. No rebound no guarding, and no masses palpated. Bowel sounds are normal. EXTREMITIES: FROM in all major joints, no edema, no cyanosis or clubbing. NEURO: Alert and oriented x 3. No acute neurological deficits. Speech is normal and follows commands. SKIN: Dry and warm Triage Information Reviewed: Yes Vital Signs On Initial Exam: Initial Vitals Temp Pulse Resp BP Pulse Ox 97.4 F 81 16 129/80 100 11/21/18 21:50 11/21/18 21:50 11/21/18 21:50 11/21/18 21:50 11/21/18 21:50 Vital Signs Reviewed: Yes Diagnostics - Vital Signs Vital Signs Temp Pulse Resp BP Pulse Ox 11/21/18 21:50 97.4 F 81 16 129/80 100 - Laboratory Result Diagrams: 11/22/18 00:51 11/22/18 00:51 Lab Statement: Any lab studies that have been ordered have been reviewed, and results considered in the medical decision making process. - Ultrasound No standard instances Ultrasound Interpretation Completed By: Radiologist Summary of Ultrasound Findings: 1. Hepatomegaly. 2. Contracted gallbladder with mildly thickened gallbladder wall. ED physician has reviewed this report. Abdominal Pain Fem Course/Dx - Course Course Of Treatment: This patient is a 28 year old F presenting to [facility] with a chief complaint of intermittent lower abdominal pain since 3 days ago. The patient rates the pain 6/10 in severity. Patient denies changes in appetite. The pain has gotten better in the ED. Gallbladder US reveals, per radiologist, 1. Hepatomegaly. 2. Contracted gallbladder with mildly thickened gallbladder wall. ED physician has reviewed this radiology report. Test results with no significant abnormalities. In the ED course the patient was given Al Hydrox and Lidocaine. Patient will be discharged with prescription for Pantoprazole and follow up from Dr. Owusu. The patient is agreeable with this plan. - Diagnoses Provider Diagnoses: Gastritis Discharge - Sign-Out/Discharge Documenting (check all that apply): Patient Departure - discharge Patient Received Moderate/Deep Sedation with Procedure: No - Discharge Plan Condition: Stable Disposition: HOME Prescriptions: Pantoprazole TAB * [Protonix TAB*] 40 mg PO DAILY #30 tab Patient Education Materials: Gastritis (ED) Referrals: Joe Owusu DO [Primary Care Provider] - 2 Days Additional Instructions: RETURN TO THE EMERGENCY DEPARTMENT FOR CHANGING OR WORSENING SYMPTOMS. FOLLOW UP WITH Dr. Owusu IN 1-2 DAYS. - Attestation Statements Document Initiated by Scribe: Yes Documenting Scribe: Saud Savage Provider For Whom Scribe is Documenting (Include Credential): Jack Marcus MD Scribe Attestation: Saud Crouch, caroleibed for Jack Marcus MD on 11/22/18 at 0126. Status of Scribe Document: Ready
[2018-11-22 01:02] LABS: Hematocrit 41 % (35-47); Hemoglobin 13.6 g/dl (12.0-16.0); Mean Corpuscular HGB Conc 33 g/dl (31-36); Mean Corpuscular Hemoglobin 31 pg (27-31); Mean Corpuscular Volume 92 fL (80-97); Red Cell Distribution Width 13 % (10.5-15); White Blood Count 6.7 10^3/ul (3.5-10.8)
[2018-11-22 01:10] LABS: Albumin 4.2 g/dL (3.2-5.2); Amylase 44 U/L (29-103); CO2 Carbon Dioxide 23 mmol/L (22-32); Calcium 9.2 mg/dL (8.6-10.3); Chloride 105 mmol/L (101-111); Sodium 134 mmol/L (135-145)
[2018-11-22 01:16] LABS: ALT 122 U/L (7-52); Albumin/Globulin Ratio 1.4 (1-3); Alkaline Phosphatase 48 U/L (34-104); BUN/Creatinine Ratio 19.7 (8-20); Blood Urea Nitrogen 15 mg/dL (6-24); C Reactive Protein 2.69 mg/L (<8.01); EGFR African American 108.1 (>60); EGFR Non-African American 89.4 (>60); Glucose 98 mg/dL (70-100); Total Protein 7.2 g/dL (6.4-8.9)
[2018-11-22 01:21] LABS: Anion Gap 6 mmol/L (2-11)
[2018-11-22 01:22] LABS: ABS Basophils 0.1 10^3/ul (0-0.2); ABS Eosinophils 0.3 10^3/ul (0-0.6); ABS Lymphocytes 2.9 10^3/ul (1.0-4.8); ABS Monocytes 0.5 10^3/ul (0-0.8); ABS Neutrophils 2.9 10^3/ul (1.5-7.7); ABS Nucleated RBC 0 10^3/ul; Eosinophil % 4.9 %; Lymphocyte % 42.9 %; Mean Platelet Volume 8.7 fL (7.4-10.4); Nucleated Red Blood Cells % 0.1; Platelet Count 194 10^3/ul (150-450)
[2018-11-22 01:43] VITALS: BP 108/65
[2018-11-22 01:58] LABS: HCG Pregnancy < 0.60 mIU/mL
[2018-11-22 01:58] LABS: Potassium Redraw 4.1 mmol/L (3.5-5.0)
== END 2018-11-22 01:37 | disposition home or self-care (01) ==
LOC: ED 21:47
DX: K29.70 Gastritis, unspecified, without bleeding (principal); R16.0 Hepatomegaly, not elsewhere classified; K82.0 Obstruction of gallbladder; Z88.2 Allergy status to sulfonamides; F17.210 Nicotine dependence, cigarettes, uncomplicated
CPT/HCPCS: 36415; 76705; 80053; 82150; 83690; 83735; 84702; 85025; 86140; 99283; A9270-GY

== ENCOUNTER 2018-12-29 20:32 | Emergency (ER) | payer OTHER ==
[2018-12-29 20:45] VITALS: BP 117/63
--- NOTE | 2018-12-29 20:45 | UC ---
Complaint Female HPI - History Of Current Complaint Chief Complaint: UCGU Stated Complaint: URINARY COMPLAINT Time Seen by Provider: 12/29/18 20:35 Hx Last Menstrual Period: [id number] Pain Intensity: 4 - Allergies/Home Medications Allergies/Adverse Reactions: Allergies Allergy/AdvReac Type Severity Reaction Status Date / Time Sulfa (Sulfonamide Allergy Hives Verified 12/29/18 20:45 Antibiotics) PMH/Surg Hx/FS Hx/Imm Hx GI/ History: Gastroesophageal Reflux Other History Of: Negative For: Anticoagulant Therapy - Surgical History Surgical History: None Surgery Procedure, Year, and Place: n/a - Family History Known Family History: Positive: Hypertension, Diabetes, Non-Contributory - Social History Alcohol Use: None Substance Use Type: Heroin Substance Use Comment - Amount & Last Used: stopped 05/26/2017 Smoking Status (MU): Current Every Day Smoker Type: Cigarettes Amount Used/How Often: 1/2 PPD Review of Systems All Other Systems Reviewed And Are Negative: Yes Constitutional: Positive: Negative Skin: Positive: Negative Respiratory: Positive: Negative Cardiovascular: Positive: Negative Gastrointestinal: Positive: Negative Genitourinary: Positive: Dysuria, Hematuria Neurological: Positive: Negative Psychological: Positive: Negative Physical Exam - Summary Physical Exam Summary: GENERAL: NAD. WDWN. No pain distress. SKIN: No rashes, sores, lesions, or open wounds. NECK: Supple. Nontender. No lymphadenopathy. CHEST: CTAB. No r/r/w. No accessory muscle use. Breathing comfortably and in no distress. CV: RRR. Without m/r/g. Pulses intact. Cap refill <2seconds ABDOMEN: Soft. NTTP. No distention or guarding. No organomegaly. No CVA tenderness. Bowel sounds present NEURO: Alert. PSYCH: Age appropriate behavior. Triage Information Reviewed: Yes Vital Signs: Initial Vital Signs Temp 97.7 F 12/29/18 20:38 Pulse 64 12/29/18 20:38 Resp 18 12/29/18 20:38 BP 117/63 12/29/18 20:38 Pulse Ox 97 12/29/18 20:38 Vital Signs Reviewed: Yes Discharge - Sign-Out/Discharge Documenting (check all that apply): Patient Departure All imaging exams completed and their final reports reviewed: No Studies - Discharge Plan Condition: Stable Disposition: HOME Referrals: Joe Owusu DO [Primary Care Provider] - - Billing Disposition and Condition Condition: STABLE Disposition: Home
[2018-12-29] MEDS ORDERED: Ciprofloxacin TAB* 500 MG PO ONE (21:16)
--- NOTE | 2018-12-29 21:52 | UC ---
Complaint Female HPI - HPI Summary HPI Summary: ONSET YESTERDAY OF DYSURIA, FREQUENCY, URGENCY AND HEMATURIA. NO FEVER OR NAUSEA. DOES REPORT SOME MILD RIGHT-SIDED FLANK PAIN. ALSO IS CONCERNED SHE MAY HAVE BV. STATES SHE HAS HAD THIS IN THE PAST AND SYMPTOMS FEEL SIMILAR. PATIENT DESCRIBES VAGINAL IRRITATION AND FOUL ODOR. HAS UNPROTECTED SEX WITH ONE MALE PARTNER. IS NOT INTERESTED IN STD TESTING TODAY. PATIENT USUALLY FOLLOWS UP WITH [facility]. REPORTS 0 CHANCE OF . ENDED HER PERIOD A COUPLE OF DAYS AGO AND PARTNER HAS HAD A VASECTOMY. - History Of Current Complaint Chief Complaint: UCGU Stated Complaint: URINARY COMPLAINT Time Seen by Provider: 12/29/18 20:35 Hx Obtained From: Patient Hx Last Menstrual Period: [id number] Onset/Duration: Gradual Onset, Lasting Days, Still Present Timing: Constant Severity Initially: Moderate Severity Currently: Moderate Pain Intensity: 0 Pain Scale Used: 0-10 Numeric Character: Burning Aggravating Factor(s): Urination Alleviating Factor(s): Nothing Associated Signs And Symptoms: Positive: Back Pain. Negative: Fever, Nausea - Allergies/Home Medications Allergies/Adverse Reactions: Allergies Allergy/AdvReac Type Severity Reaction Status Date / Time Sulfa (Sulfonamide Allergy Hives Verified 12/29/18 20:45 Antibiotics) PMH/Surg Hx/FS Hx/Imm Hx Other History Of: Hepatitis C Negative For: Anticoagulant Therapy - Surgical History Surgical History: None Surgery Procedure, Year, and Place: n/a - Family History Known Family History: Positive: Hypertension, Diabetes, Non-Contributory - Social History Alcohol Use: None Substance Use Type: Heroin Substance Use Comment - Amount & Last Used: stopped 05/26/2017 Smoking Status (MU): Current Every Day Smoker Type: Cigarettes Amount Used/How Often: 1/2 PPD Review of Systems All Other Systems Reviewed And Are Negative: Yes Constitutional: Positive: Negative Respiratory: Positive: Negative Cardiovascular: Positive: Negative Gastrointestinal: Positive: Negative Genitourinary: Positive: Dysuria, Hematuria, Frequency, Urgency, Other - MALODOROUS VAGINA Physical Exam Triage Information Reviewed: Yes Appearance: Well-Appearing, No Pain Distress, Well-Nourished Vital Signs: Initial Vital Signs Temp 97.7 F 12/29/18 20:38 Pulse 64 12/29/18 20:38 Resp 18 12/29/18 20:38 BP 117/63 12/29/18 20:38 Pulse Ox 97 04/16/19 20:38 Laboratory Tests 12/29/18 21:02 POC Urine Color Yellow POC Urine Clarity Clear POC Urine pH 5.5 POC Ur Specif [place] >= 1.030 POC Urine Protein 1+ A POC Ur Glucose (UA) Negative POC Urine Ketones Negative POC Urine Blood 2+ A POC Urine Nitrite Negative POC Urine Bilirubin Negative POC Urine Urobilinogen 0.2 POC U Leukocyte Esteras 1+ A Vital Signs Reviewed: Yes Eyes: Positive: Conjunctiva Clear ENT: Positive: Hearing grossly normal Neck: Positive: Supple Respiratory: Positive: No respiratory distress, No accessory muscle use Cardiovascular: Positive: Pulses Normal Abdomen Description: Positive: Soft, Other: - MILDLY TENDER SUPRAPUBIC. Negative: CVA Tenderness (R), CVA Tenderness (L), Distended, Guarding Musculoskeletal: Positive: No Edema Neurological: Positive: Alert Psychological: Positive: Age Appropriate Behavior Skin: Negative: Rashes Complaint Female Dx - Course Course Of Treatment: WILL TREAT FOR UTI BASED ON POSITIVE URINE DIP. SPECIMEN SENT FOR CULTURE. PATIENT DESCRIBES VAGINAL IRRITATION AND FOUL ODOR SIMILAR TO PREVIOUS EPISODES OF BV. SHE DECLINES PELVIC EXAM TODAY AND SIMPLY REQUESTS TREATMENT WITH [facility]. STATES SHE WILL FOLLOW-UP WITH [facility] IF THIS DOES NOT RESOLVE HER SYMPTOMS. - Differential Dx/Diagnosis Provider Diagnosis: UTI (urinary tract infection), Vaginitis Discharge - Sign-Out/Discharge Documenting (check all that apply): Patient Departure All imaging exams completed and their final reports reviewed: No Studies - Discharge Plan Condition: Stable Disposition: HOME Prescriptions: Ciprofloxacin TAB* [Cipro 500 MG TAB*] 500 mg PO BID #9 tab metroNIDAZOLE VAGINAL 0.75%* 1 applic VAGINAL BEDTIME #1 tube Patient Education Materials: Bacterial Vaginosis (ED), Urinary Tract Infection in Women (ED) Referrals: oJe Owusu, [Primary Care Provider] - If Needed Additional Instructions: TAKE THE ANTIBIOTIC FOR THE FULL 5 DAYS TO TREAT YOUR UTI. WE WILL SEND YOUR URINE FOR CULTURE AND CALL YOU IF YOUR MEDICATION NEEDS TO BE CHANGED. BASED ON YOUR SYMPTOMS WE WILL TREAT YOU EMPIRICALLY FOR BV WITH [facility] PER YOUR REQUEST. IF YOUR SYMPTOMS DO NOT IMPROVE FOLLOW-UP AT [facility]. - Billing Disposition and Condition Condition: STABLE Disposition: Home
== END 2018-12-29 21:35 | disposition home or self-care (01) ==
LOC: UCEAST 20:32
DX: N39.0 Urinary tract infection, site not specified (principal); R31.9 Hematuria, unspecified; N76.0 Acute vaginitis; Z88.2 Allergy status to sulfonamides; F17.210 Nicotine dependence, cigarettes, uncomplicated
CPT/HCPCS: 81003; 87077; 87086; 87186; 99212; A9270-GY; G0463

== ENCOUNTER 2019-06-12 18:12 | Emergency (ER) | payer OTHER ==
[2019-06-12 18:28] VITALS: BP 111/65
--- NOTE | 2019-06-12 19:44 | UC ---
Complaint Female HPI - HPI Summary HPI Summary: Patient has had intermittent dysuria, bladder pressure and flank pain over the past few weeks. A couple of days ago noted some hematuria however she reports she just finished her period 2 days ago. No fever, nausea, back pain. States she gets UTIs with some frequency and this feels the same. - History Of Current Complaint Chief Complaint: UCGU Stated Complaint: FREQUENT URINATION Time Seen by Provider: 06/12/19 18:16 Hx Obtained From: Patient, Family/Business Area Director - BOYFRIEND Hx Last Menstrual Period: 06/11/19 Onset/Duration: Gradual Onset, Lasting Days, Still Present Timing: Constant Severity Initially: Mild Severity Currently: Mild Pain Intensity: 3 Pain Scale Used: 0-10 Numeric Character: Burning Aggravating Factor(s): Urination Alleviating Factor(s): Nothing Associated Signs And Symptoms: Positive: Back Pain. Negative: Fever, Nausea - Allergies/Home Medications Allergies/Adverse Reactions: Allergies Allergy/AdvReac Type Severity Reaction Status Date / Time Sulfa (Sulfonamide Allergy Hives Verified 06/12/19 18:28 Antibiotics) PMH/Surg Hx/FS Hx/Imm Hx Other History Of: Hepatitis C Negative For: Anticoagulant Therapy - Surgical History Surgical History: None Surgery Procedure, Year, and Place: n/a - Family History Known Family History: Positive: Hypertension, Diabetes, Non-Contributory - Social History Alcohol Use: Occasionally Substance Use Type: Heroin Substance Use Comment - Amount & Last Used: stopped 05/26/2017 Smoking Status (MU): Current Every Day Smoker Type: Cigarettes Amount Used/How Often: 1 PPD Household Exposure Type: Cigarettes Review of Systems All Other Systems Reviewed And Are Negative: Yes Constitutional: Positive: Negative Respiratory: Positive: Negative Cardiovascular: Positive: Negative Gastrointestinal: Positive: Abdominal Pain Genitourinary: Positive: Dysuria, Hematuria, Frequency Physical Exam Triage Information Reviewed: Yes Appearance: Well-Appearing, No Pain Distress, Well-Nourished Vital Signs: Initial Vital Signs Temp 97.5 F 06/12/19 18:23 Pulse 71 06/12/19 18:23 Resp 18 06/12/19 18:23 BP 111/65 06/12/19 18:23 Pulse Ox 100 06/12/19 18:23 Laboratory Tests 06/12/19 18:43 POC Urine Color Yellow POC Urine Clarity Clear POC Urine pH 5.5 POC Ur Specif [place] >= 1.030 POC Urine Protein 1+ A POC Ur Glucose (UA) Trace A POC Urine Ketones Negative POC Urine Blood 3+ A POC Urine Nitrite Negative POC Urine Bilirubin Negative POC Urine Urobilinogen 0.2 POC U Leukocyte Esteras Negative Vital Signs Reviewed: Yes Eyes: Positive: Conjunctiva Clear ENT: Positive: Hearing grossly normal Neck: Positive: Supple Respiratory: Positive: No respiratory distress, No accessory muscle use Cardiovascular: Positive: Pulses Normal Abdomen Description: Positive: Soft. Negative: CVA Tenderness (R), CVA Tenderness (L), Distended, Guarding Musculoskeletal: Positive: No Edema Neurological: Positive: Alert Psychological: Positive: Age Appropriate Behavior Skin: Negative: Rashes Complaint Female Dx - Course Course Of Treatment: URINE DIP NOT SUGGESTIVE OF UTI TODAY BUT PT INSISTS HER SX ARE CONSISTENT WITH UTI SHE HAS HAD IN THE PAST SO WILL COVER WITH 3 DAYS OF ANTIBIOTICS. I SUSPECT THE BLOOD IN HER URINE IS FROM THE TAIL END OF HER PERIOD. POSSIBLY A KIDNEY STONE BUT CLINICALLY LESS LIKELY. NO CT AVAILABLE IN THE UC TODAY. I HAVE ENCOURAGED THE PATIENT TO FOLLOW-UP WITH HER PCP FOR REPEAT URINE CHECK. TO THE ER WITHOUT FAIL IF HER SX WORSEN. - Differential Dx/Diagnosis Provider Diagnosis: Dysuria Discharge ED - Sign-Out/Discharge Documenting (check all that apply): Patient Departure All imaging exams completed and their final reports reviewed: No Studies - Discharge Plan Condition: Stable Disposition: HOME Prescriptions: Ciprofloxacin TAB* [Cipro 500 MG TAB*] 500 mg PO BID #6 tab Patient Education Materials: Hematuria (ED) Referrals: Joe Owusu DO [Primary Care Provider] - 2 Weeks Additional Instructions: URINE DIP HAS SOME BLOOD AND PROTEIN BUT NO BACTERIA. THIS IS NOT CONSISTENT WITH UTI BUT BASED ON YOUR SYMPTOMS WiLL GO AHEAD AND COVER WITH A FEW DAYS OF ANTIBIOTICS. I ENCOURAGE YOU TO FOLLOW-UP WITH YOUR PCP IN ABOUT 2 WEEKS TO RECHECK YOUR URINE TO ENSURE THIS IS ALL CLEARED. THERE IS ALSO A POSSIBILITY OF A KIDNEY STONE. IF YOUR SYMPTOMS DO NOT IMPROVE OVER THE NEXT FEW DAYS GO TO THE ER FOR FURTHER EVALUATION. - Billing Disposition and Condition Condition: STABLE Disposition: Home
== END 2019-06-12 19:15 | disposition home or self-care (01) ==
LOC: UCEAST 18:12
DX: R30.0 Dysuria (principal); Z87.440 Personal history of urinary (tract) infections; Z88.2 Allergy status to sulfonamides; F17.210 Nicotine dependence, cigarettes, uncomplicated
CPT/HCPCS: 81003; 87086; 99212; G0463

== ENCOUNTER 2019-07-22 17:45 | Emergency (ER) | payer OTHER ==
[2019-07-22 18:28] VITALS: BP 105/49
--- NOTE | 2019-07-22 19:05 | UC ---
Throat Pain/Nasal Sami HPI - HPI Summary HPI Summary: Patient is a 29yo female presenting with intermittent fever, nausea, vomiting, diarrhea, abdominal pain, and "kidney pain" x3 days. Patient states she had sore throat and ear pain approx 1.5 weeks ago and has not felt well since. Notes fever of 100.2 at home intermittently. Denies fever today. Notes 3 episodes of vomiting, twice on friday and once yesterday. Notes looser stool between solid stools. Notes fatigue and mild decreased appetite. Notes ache in LLQ that "comes and goes." Denies urinary symptoms. Denies hematochezia and hematemesis. States she is "probably dehydrated" because she has been constantly nauseous and does not like drinking water. Notes strep exposure and possible flu exposure. States she has history of UTIs as well. Denies GI disorders other than GERD. Denies possible . - History of Current Complaint Chief Complaint: UCGeneralIllness Stated Complaint: uri Hx Obtained From: Patient Hx Last Menstrual Period: 07/09/19 Onset/Duration: Gradual Onset, Lasting Days Severity: Mild Pain Intensity: 3 Pain Scale Used: 0-10 Numeric - Allergies/Home Medications Allergies/Adverse Reactions: Allergies Allergy/AdvReac Type Severity Reaction Status Date / Time Sulfa (Sulfonamide Allergy Hives Verified 07/22/19 18:28 Antibiotics) PMH/Surg Hx/FS Hx/Imm Hx GI/ History: Gastroesophageal Reflux Other History Of: Hepatitis C Negative For: Anticoagulant Therapy - Surgical History Surgical History: None Surgery Procedure, Year, and Place: n/a - Family History Known Family History: Positive: Hypertension, Diabetes, Non-Contributory - Social History Occupation: Employed Full-time Alcohol Use: Occasionally Substance Use Type: Heroin Substance Use Comment - Amount & Last Used: stopped 05/26/2017 Smoking Status (MU): Heavy Every Day Tobacco Smoker Type: Cigarettes Amount Used/How Often: 1 PPD Household Exposure Type: Cigarettes Review of Systems All Other Systems Reviewed And Are Negative: Yes Constitutional: Positive: Fever, Chills, Fatigue ENT: Positive: Sore Throat. Negative: Ear Ache, Nasal Discharge, Sinus Congestion, Sinus Pain/Tenderness Respiratory: Positive: Negative. Negative: Shortness Of Breath, Cough Cardiovascular: Positive: Negative Gastrointestinal: Positive: Abdominal Pain, Vomiting, Diarrhea, Nausea Genitourinary: Positive: Negative Musculoskeletal: Positive: Myalgia Neurological: Positive: Negative Physical Exam Triage Information Reviewed: Yes Appearance: Well-Appearing, No Pain Distress, Well-Nourished Vital Signs: Initial Vital Signs Temp 99.6 F 07/22/19 18:20 Pulse 71 07/22/19 18:20 Resp 16 07/22/19 18:20 BP 105/49 07/22/19 18:20 Pulse Ox 98 07/22/19 18:20 Lab Results 07/22/19 07/22/19 07/22/19 Range/Units 19:26 19:30 19:34 POC Urine Color Yellow POC Urine Clarity Clear POC Urine pH 7.5 (5-9) POC Ur Specif [place] 1.015 (1.010-1.030) POC Urine Protein Negative (Negative) POC Ur Glucose (UA) Negative (Negative) POC Urine Ketones Negative (Negative) POC Urine Blood Negative (Negative) POC Urine Nitrite Negative (Negative) POC Urine Bilirubin Negative (Negative) POC Urine Urobilinogen 0.2 (Negative) POC U Leukocyte Esteras Negative (Negative) POC Ur Test Negative (Negative) Influenza A (Rapid) (Negative) Influenza B (Rapid) (Negative) Group A Strep Rapid Negative (Negative) 07/22/19 Range/Units 19:36 POC Urine Color POC Urine Clarity POC Urine pH (5-9) POC Ur Specif [place] (1.010-1.030) POC Urine Protein (Negative) POC Ur Glucose (UA) (Negative) POC Urine Ketones (Negative) POC Urine Blood (Negative) POC Urine Nitrite (Negative) POC Urine Bilirubin (Negative) POC Urine Urobilinogen (Negative) POC U Leukocyte Esteras (Negative) POC Ur Test (Negative) Influenza A (Rapid) Negative (Negative) Influenza B (Rapid) Negative (Negative) Group A Strep Rapid (Negative) Vital Signs Reviewed: Yes Eyes: Positive: Conjunctiva Clear ENT: Positive: Hearing grossly normal, Pharyngeal erythema, TMs normal, Uvula midline. Negative: Nasal congestion, Nasal drainage, Tonsillar swelling, Tonsillar exudate, Hoarse voice, Sinus tenderness Neck exam: Normal Neck: Positive: Supple, Nontender, No Lymphadenopathy Respiratory Exam: Normal Respiratory: Positive: Lungs clear, Normal breath sounds, No respiratory distress Cardiovascular Exam: Normal Cardiovascular: Positive: RRR Abdominal Exam: Normal Abdomen Description: Positive: Nontender, No Organomegaly, Soft. Negative: CVA Tenderness (R), CVA Tenderness (L), Distended, Guarding, McBurney's Point Tenderness Bowel Sounds: Positive: Present Neurological: Positive: Alert Psychological: Positive: Age Appropriate Behavior Skin Exam: Normal Throat Pain/Nasal Course/Dx - Course Course Of Treatment: Discussed negative strep, flu, and urine with patient. Educated on likely viral etiology of symptoms and to continue with symptomatic treatment, including increase fluid intake. I prescribed zofran to help relieve nausea. Instructed to follow up with PCP if symptoms persist or go to ED if they worsen. PAteint VS normal and in NAD. Patient voiced understanding and agreed with treatment plan. - Differential Dx/Diagnosis Provider Diagnosis: Nausea Discharge ED - Sign-Out/Discharge Documenting (check all that apply): Patient Departure All imaging exams completed and their final reports reviewed: No Studies - Discharge Plan Condition: Stable Disposition: HOME Prescriptions: Ondansetron ODT TAB* [Zofran 4 MG Odt TAB*] 4 mg SL Q6H PRN #12 tab.odt PRN Reason: Nausea/Vomiting Patient Education Materials: Acute Nausea and Vomiting (ED) Forms: *Work Release Referrals: Joe Owusu, DO [Primary Care Provider] - If Needed Additional Instructions: As discussed, take the zofran as prescribed for your nausea and vomiting. You received the first dose here at 8pm. Get plenty of rest and increase your fluid intake. Eat a bland diet, such as toast, bananas, and rice while symptoms are present. You may continue with tylenol as directed for pain and fever relief. Go to the emergency room if your symptoms worsen, including fever higher than 102, excessive vomiting, or you are unable to keep fluids down. - Billing Disposition and Condition Condition: STABLE Disposition: Home
[2019-07-22 19:50] LABS: Influenza A Molecular NEGATIVE (Negative); Influenza B Molecular NEGATIVE (Negative)
[2019-07-22] MEDS ORDERED: Ondansetron ODT TAB* 4 MG SL ONE (19:58)
== END 2019-07-22 20:16 | disposition home or self-care (01) ==
LOC: UCEAST 17:45
DX: R50.9 Fever, unspecified (principal); R11.2 Nausea with vomiting, unspecified; R19.7 Diarrhea, unspecified; R10.9 Unspecified abdominal pain; J02.9 Acute pharyngitis, unspecified; H92.09 Otalgia, unspecified ear; N23 Unspecified renal colic; M79.10 Myalgia, unspecified site; F17.210 Nicotine dependence, cigarettes, uncomplicated; R53.83 Other fatigue; Z88.2 Allergy status to sulfonamides
CPT/HCPCS: 81003; 84702; 87651; 99212; A9270-GY; G0463

== ENCOUNTER 2019-07-27 07:24 | Emergency (ER) | payer OTHER ==
--- NOTE | 2019-07-27 07:54 | ED ---
Influenza-Like Illness - HPI Summary HPI Summary: Pt is a 29 y/o F presenting to the ED with a chief complaint of nausea, vomiting , and diarrhea. Aprox 1 week ago, pt began experiencing a sore throat and bilateral ear aches. States she had chills and tactile fever. She then developed N/V/D and a fever, which has since evolved into mainly nausea, bodyaches, and constant fatigue. Pt states went to [facility] - neg flu and strep. no other testing. Pt was given zofran - states did not help nausea - maybe made it worse. She has not vomited in the past few days but is nauseous often, and in the morning she experiences stomach cramping/pressure. Pt states does have a history of GERD and usually remembers to take her omeprazole. Her fever, sore throat, and ear aches have also resolved, but she has woken up sweating multiple times. She notes decreased appetite. Pt did eat a small steak dinner last evening. She denies vaginal discharge, burning with urination, malodorous urine, recent travel, recent abx, or recent tick bites. She says there could be a possibility of . Sx alleviated by lying down. Sx aggravated by standing up/moving around. no analgesia taken. Pt is on Suboxone x 18 months. States is Hep C positive - no current treatment. No HIV. Patients medication reviewed this visit. - History of Current Complaint Chief Complaint: EDFluSymptoms Time Seen by Provider: 07/27/19 07:38 Hx Obtained From: Patient Onset/Duration: Gradual Onset, Lasting Weeks, Still Present Severity: Moderate Associated Signs & Symptoms: Fever, Myalgia, Sore Throat, Vomiting, Diarrhea - Allergy/Home Medications Allergies/Adverse Reactions: Allergies Allergy/AdvReac Type Severity Reaction Status Date / Time Sulfa (Sulfonamide Allergy Hives Verified 07/27/19 07:30 Antibiotics) Home Medications: Home Medications Buprenorp/Nalox 8-2 MG SL TAB [Suboxone 8-2 mg SL TAB*] 1 tab.sl SL DAILY [History Confirmed 07/27/19] Ibuprofen TAB* [Advil TAB*] 200 mg PO Q6H PRN 07/27/19 [History Confirmed ] PMH/Surg Hx/FS Hx/Imm Hx Previously Healthy: Yes Endocrine/Hematology History: Denies: Hx Anticoagulant Therapy, Hx Blood Disorders, Hx Diabetes Cardiovascular History: Reports: Other Cardiovascular Problems/Disorders - murmur GI History: Reports: Hx Gastroesophageal Reflux Disease Psychiatric History: Reports: Hx Anxiety, Hx Substance Abuse - Surgical History Surgical History: None Surgery Procedure, Year, and Place: n/a Infectious Disease History: No Infectious Disease History: Reports: Hx Hepatitis - HEP C Denies: Hx Human Immunodeficiency Virus (HIV), Hx of Known/Suspected MRSA, Traveled Outside the [place] in Last 30 Days - Family History Known Family History: Positive: Hypertension, Diabetes - Social History Occupation: Employed Full-time Alcohol Use: Occasionally Hx Substance Use: Yes Substance Use Type: Reports: Heroin Substance Use Comment - Amount & Last Used: stopped 05/26/2017, on suboxone since Hx Tobacco Use: Yes Smoking Status (MU): Heavy Every Day Tobacco Smoker Type: Cigarettes Amount Used/How Often: 1 PPD Review of Systems Positive: Fever, Fatigue, Skin Diaphoresis, Other - decreased appetite Positive: Sore Throat, Ear Ache Positive: Abdominal Pain, Vomiting, Diarrhea, Nausea Negative: burning, discharge, other - vaginal bleeding, malodorous urine Positive: Myalgia Negative: Rash All Other Systems Reviewed And Are Negative: Yes Physical Exam - Summary Physical Exam Summary: Vital Signs Reviewed: Yes A+Ox3, no distress, tired appearing Eyes: Conjunctiva Clear, EMILY. EOM intact and full ENT: Hearing grossly normal TM x 2 clear, mmpasty, uvula midline, no exudate, no erythema Neck: Positive: Supple Respiratory: Positive: No respiratory distress, No accessory muscle use + CTA throughout no w/r Cardiovascular: RRR nl s1, s2 no m/r CBT <2 sec abd soft + BS, soft, mild epigastric discomfor, mild RUQ. 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 Skin: Positive: no rash, no ecchymosis Triage Information Reviewed: Yes Vital Signs On Initial Exam: Initial Vitals Temp Pulse Resp BP Pulse Ox 97.8 F 74 18 125/63 99 07/27/19 07:25 07/27/19 07:25 07/27/19 07:25 07/27/19 07:25 07/27/19 07:25 Vital Signs Reviewed: Yes Procedures - Sedation Patient Received Moderate/Deep Sedation with Procedure: No Diagnostics - Vital Signs Vital Signs Temp Pulse Resp BP Pulse Ox 07/27/19 07:25 97.8 F 74 18 125/63 99 - Laboratory Result Diagrams: 07/27/19 08:22 07/27/19 08:25 Lab Statement: Any lab studies that have been ordered have been reviewed, and results considered in the medical decision making process. - Ultrasound Abd US Ultrasound Interpretation Completed By: Radiologist Summary of Ultrasound Findings: 0.9 CM ECHOGENIC LESION OF THE LEFT LOBE OF LIVER. IN THE ABSENCE OF A HISTORY OF MALIGNANCY OR RISK FACTORS FOR HEPATOCELLULAR CARCINOMA, THIS MOST LIKELY REPRESENTS AN INCIDENTAL HEPATIC HEMANGIOMA. THIS IS NOT CLEARLY SEEN ON PREVIOUS EXAMINATIONS. RECOMMEND SIX- MONTH FOLLOW-UP SONOGRAPHY OF THE LIVER TO DOCUMENT STABILITY OF THIS PROBABLY BENIGN FINDING. ED physician has reviewed this report. Re-Evaluation - Re-Evaluation First Eval Comment: Reviewed labs with patient. We put a lipase [place] in . Ramirez patient regarding LFTs. Will order ultrasound. Patient states she feels cold. Recheck temperature is afebrile. No further needs. 2nd re-eval Re-Evaluation Time: 10:29 Change: Unchanged Comment: Pt declines popsicles, juice, vidya lo, or crackers. Awaiting US results at this time. Flu Symptom Course/Dx - Course Course Of Treatment: Patient presents to urgent care stating for approximately one week she has been feeling well. Patient states initially was high congestion sore throat and body aches. Patient states he then developed nausea , vomiting, diarrhea. Patient states she has not had any vomiting or diarrhea in about 3 days. Patient states she continues to feel nauseated and has some discomfort in her epigastrium. Patient does have a history of GERD for which he takes omeprazole most of the time. Patient has not taken any other analgesia. Patient states she was at urgent care negative for flu and strep. Vital signs stable. On exam patient mildly dehydrated mucous members. Patient does have some mild epigastric right upper quadrant pain. No guarding or rebound. Will place an IV given a liter of fluid. We'll check labs including LFTs and lipase as well as myself. Patient had a negative flu and strep after discussion will not retest today. Will reassess. Patient comfortable and in agreement with plan - Diagnoses Provider Diagnoses: Nausea and vomiting, Abdominal pain Discharge ED - Sign-Out/Discharge Documenting (check all that apply): Patient Departure - Discharge Plan Condition: Stable Disposition: HOME Patient Education Materials: Acute Nausea and Vomiting (ED), Abdominal Pain (ED ) Forms: *Work Release Referrals: [facility] [Outside] Joe Owusu DO [Primary Care Provider] - Additional Instructions: - For the first 6 hours, eat and drink clears (water, vidya lo, soup broth, jello, popsicles, Gatorade). If you tolerate this okay, add bland foods such as dry toast, scrambled eggs, crackers. Wait until you are feeling better for 24 hours before eating spicy food, acidic food, tomato based food, fried food. - Continue to take Omeprazole as previously prescribed - Avoid excess caffeine and alcohol - Contact your doctor to schedule a follow-up appointment this week. If you are unable to get an appointment, okay to call the [facility] at the number provided to get a recheck appointment - As discussed you have a small lesion on your liver. The radiologist recommends this be re-imaged in 3-6 months - Billing Disposition and Condition Condition: STABLE Disposition: Home - Attestation Statements Document Initiated by Kathleenibe: Yes Documenting Scribe: Delmy Tracy Provider For Whom Kendall is Documenting (Include Credential): Airam Resendiz MD. Scribe Attestation: Delmy Crouch, scribed for Airam Resendiz MD. on 07/27/19 at 1126. Scribe Documentation Reviewed: Yes Provider Attestation: The documentation as recorded by the Delmy guy accurately reflects the service I personally performed and the decisions made by me, Airam Resendiz MD. Status of Scribe Document: Viewed
[2019-07-27] MEDS ORDERED: NS 0.9% 1000 ML** 1,000 ML IV ONE (07:59)
[2019-07-27] MEDS ORDERED: Famotidine IV* 10 MG/ML 2 ML (20 mg) IV SLOW PU ONE (08:11)
[2019-07-27 08:38] LABS: Urine Appearance Clear; Urine Bilirubin Negative (Negative); Urine Blood Negative (Negative); Urine Color Yellow; Urine Glucose Negative (Negative); Urine Ketones Negative (Negative); Urine Nitrite Negative (Negative); Urine Protein Negative (Negative); Urine Specific Gravity 1.021 (1.010-1.030); Urine Urobilinogen Negative (Negative)
[2019-07-27 08:43] LABS: ABS Eosinophils 0.3 10^3/ul (0-0.6); ABS Lymphocytes 2.4 10^3/ul (1.0-4.8); ABS Monocytes 0.4 10^3/ul (0-0.8); ABS Neutrophils 2.4 10^3/ul (1.5-7.7); Eosinophil % 5.6 %; Hematocrit 44 % (35-47); Hemoglobin 15.5 g/dL (12.0-16.0); Lymphocyte % 42.7 %; Mean Corpuscular HGB Conc 35 g/dL (31-36); Mean Corpuscular Hemoglobin 33 pg (27-31); Mean Corpuscular Volume 92 fL (80-97); Mean Platelet Volume 8.1 fL (7.4-10.4); Nucleated Red Blood Cells % 0.1; Platelet Count 204 10^3/uL (150-450); Red Blood Count 4.75 10^6 /uL (3.70-4.87); Red Cell Distribution Width 13 % (10-15); White Blood Count 5.5 10^3/uL (3.5-10.8)
[2019-07-27 08:59] LABS: ALT 111 U/L (7-52); AST 62 U/L (13-39); Albumin 4.4 g/dL (3.2-5.2); Albumin/Globulin Ratio 1.4 (1-3); Alkaline Phosphatase 46 U/L (34-104); Anion Gap 6 mmol/L (2-11); BUN/Creatinine Ratio 16.9 (8-20); Blood Urea Nitrogen 13 mg/dL (6-24); CO2 Carbon Dioxide 26 mmol/L (22-32); Calcium 9.9 mg/dL (8.6-10.3); Chloride 102 mmol/L (101-111); Creatine Kinase 101 U/L (10-223); EGFR African American 105.8 (>60); EGFR Non-African American 87.4 (>60); Globulin 3.1 g/dL (2-4); Glucose 87 mg/dL (70-100); Magnesium 1.9 mg/dL (1.9-2.7); Potassium 3.9 mmol/L (3.5-5.0); Sodium 134 mmol/L (135-145); Total Protein 7.5 g/dL (6.4-8.9)
[2019-07-27 09:05] LABS: HCG Pregnancy < 0.60 mIU/mL
[2019-07-27 11:42] VITALS: BP 109/52
== END 2019-07-27 11:41 | disposition home or self-care (01) ==
LOC: ED 07:24
DX: R11.2 Nausea with vomiting, unspecified (principal); R10.13 Epigastric pain; R10.11 Right upper quadrant pain; R19.7 Diarrhea, unspecified; R53.83 Other fatigue; K76.9 Liver disease, unspecified; K21.9 Gastro-esophageal reflux disease without esophagitis; Z88.2 Allergy status to sulfonamides; F17.210 Nicotine dependence, cigarettes, uncomplicated
CPT/HCPCS: 36415; 76705; 80053; 81003; 82550; 83690; 83735; 84702; 85025; 86308; 96361; 96374; 99282

== ENCOUNTER 2019-08-18 22:11 | Emergency (ER) | payer OTHER ==
[2019-08-18 22:25] VITALS: BP 117/84
== END 2019-08-18 23:51 | disposition left against medical advice (07) ==
LOC: ED 22:11
DX: R07.9 Chest pain, unspecified (principal); Z53.21 Procedure and treatment not carried out due to patient leaving prior to being seen by health care provider
CPT/HCPCS: 71046; 93005; 99281

== ENCOUNTER 2019-08-19 03:35 | Emergency (ER) | payer OTHER ==
--- NOTE | 2019-08-19 03:57 | ED ---
HPI Chest Pain - HPI Summary HPI Summary: Patient is a 29 y/o F presenting to the ED for a chief complaint of midsternal chest pain that began one week ago. She also notes shortness of breath, cough, and back pain between her shoulders. She denies bilateral LE pain or edema. The chest pain worsens with movement and deep breaths. She does admit to tobacco use , and she recently tried using e-cigarettes that she borrowed from a friend. LNMP was one month ago and she denies . PMHx is significant for GERD for which she takes omeprazole. - History of Current Complaint Chief Complaint: EDChestWallPain Time Seen by Provider: 08/19/19 03:46 Hx Obtained From: Patient Hx Last Menstrual Period: 07/09/19 Onset/Duration: Atraumatic, Still Present Timing: Constant Initial Severity: Moderate Current Severity: Moderate Pain Intensity: 6 Pain Scale Used: 0-10 Numeric Chest Pain Location: Mid Sternal Chest Pain Radiates: No Character: Cough, Non-Productive Aggravating Factor(s): Nothing Alleviating Factor(s): Nothing Associated Signs and Symptoms: Positive: Chest Pain, Shortness of Breath, Cough , Back Pain - Between shoulders. Negative: Edema - Bilateral LE - Allergy/Home Medications Allergies/Adverse Reactions: Allergies Allergy/AdvReac Type Severity Reaction Status Date / Time Sulfa (Sulfonamide Allergy Hives Verified 08/19/19 03:43 Antibiotics) PMH/Surg Hx/FS Hx/Imm Hx Previously Healthy: Yes Endocrine/Hematology History: Denies: Hx Anticoagulant Therapy, Hx Blood Disorders, Hx Diabetes Cardiovascular History: Reports: Other Cardiovascular Problems/Disorders - murmur Denies: Hx Hypercholesterolemia, Hx Hypertension GI History: Reports: Hx Gastroesophageal Reflux Disease Sensory History: Denies: Hx Legally Blind, Hx Deafness Opthamlomology History: Denies: Hx Legally Blind EENT History: Denies: Hx Deafness Psychiatric History: Reports: Hx Anxiety, Hx Substance Abuse - Surgical History Surgical History: None Surgery Procedure, Year, and Place: n/a Infectious Disease History: No Infectious Disease History: Reports: Hx Hepatitis - HEP C Denies: Hx Human Immunodeficiency Virus (HIV), Hx of Known/Suspected MRSA, Traveled Outside the [place] in Last 30 Days - Family History Known Family History: Positive: Hypertension, Diabetes - Social History Occupation: Employed Full-time Lives: With Family Alcohol Use: Occasionally Hx Substance Use: Yes Substance Use Type: Reports: Heroin Substance Use Comment - Amount & Last Used: stopped 05/26/2017, on suboxone since Hx Tobacco Use: Yes Smoking Status (MU): Heavy Every Day Tobacco Smoker Type: Cigarettes, eCigarettes Amount Used/How Often: 1 PPD Review of Systems Positive: Chest Pain - Midsternal Positive: Shortness Of Breath, Cough Positive: Myalgia - Positive back pain between the shoulder; negative bilateral LE pain. Negative: Edema - Bilateral LE All Other Systems Reviewed And Are Negative: Yes Physical Exam - Summary Physical Exam Summary: Appearance: Well-appearing, Well-nourished, lying in bed comfortably Skin: Warm, dry, no obvious rash Eyes: sclera anicteric, no conjunctival pallor ENT: mucous membranes moist, pharynx appears normal Neck: Supple, nontender Respiratory: Clear to auscultation, no signs of respiratory distress Cardiovascular: Normal S1, S2. No murmurs. Normal distal pulses in tibial and radial bilaterally. Abdomen: Soft, nontender, normal active bowel sounds present Musculoskeletal: Normal, Strength/ROM Intact Neurological: A&Ox3, awake and alert, mentation is normal, speech is fluent and appropriate Psychiatric: affect is normal, does not appear anxious or depressed Triage Information Reviewed: Yes Vital Signs On Initial Exam: Initial Vitals Temp Pulse Resp BP Pulse Ox 98 F 83 18 136/88 98 08/19/19 03:36 08/19/19 03:36 08/19/19 03:36 08/19/19 03:36 08/19/19 03:36 Vital Signs Reviewed: Yes Procedures - Sedation Patient Received Moderate/Deep Sedation with Procedure: No Diagnostics - Vital Signs Vital Signs Temp Pulse Resp BP Pulse Ox 08/19/19 03:36 98 F 83 18 136/88 98 - Laboratory Lab Statement: Any lab studies that have been ordered have been reviewed, and results considered in the medical decision making process. - Radiology Chest X-ray Radiology Interpretation Completed By: ED Physician Summary of Radiographic Findings: Chest X-ray IMPRESSION: no acute process. Reviewed and interpreted by Dr. Trinh, pending official radiology report. - EKG 22:16 Cardiac Rate: NL - 83 BPM EKG Rhythm: Sinus Rhythm ST Segment: Normal Ectopy: None Summary of EKG Findings: EKG at 22:16 shows NSR at 83 BPM, P waves, QRS complex , and T waves are within normal limits, T waves and intervals are normal, no ischemic changes. This is a normal EKG. Reviewed and interpreted by Dr. Trinh. Chest Pain Course/Dx - Course Course Of Treatment: Patient is a 29 y/o F presenting to the ED for a chief complaint of midsternal chest pain that began one week ago. She also notes shortness of breath, cough, and back pain between her shoulders. She denies bilateral LE pain or edema. The chest pain worsens with movement and deep breaths. She does admit to tobacco use, and she recently tried using e- cigarettes that she borrowed from a friend. LNMP was one month ago and she denies . PMHx is significant for GERD for which she takes omeprazole. On exam, unremarkable findings. EKG at 22:16 shows NSR at 83 BPM, P waves, QRS complex, and T waves are within normal limits, T waves and intervals are normal , no ischemic changes. This is a normal EKG. Chest X-ray IMPRESSION: no acute process. Patient will be discharged with a diagnosis of pleurisy. Follow up with PCP as needed. - Diagnoses Provider Diagnoses: Pleurisy Discharge ED - Sign-Out/Discharge Documenting (check all that apply): Patient Departure - Discharge - Discharge Plan Condition: Good Disposition: HOME Patient Education Materials: Pleurisy (ED) Forms: *Work Release Referrals: Joe Owusu, [Primary Care Provider] - 1 Week (if not improving) - Billing Disposition and Condition Condition: GOOD Disposition: Home - Attestation Statements Document Initiated by Kendall: Yes Documenting Kathleenibe: Yamini Hackett Provider For Whom Kendall is Documenting (Include Credential): Farhad Trinh MD [employer] Attestation: Yamini Crouch, daxed for Farhad Trinh MD on 08/19/19 at 0634. Scribe Documentation Reviewed: Yes Provider Attestation: The documentation as recorded by the Yamini guy accurately reflects the service I personally performed and the decisions made by me, Farhad Trinh MD Status of Scribe Document: Viewed
[2019-08-19 06:21] VITALS: BP 110/66
== END 2019-08-19 05:15 | disposition home or self-care (01) ==
LOC: ED 03:35
DX: R09.1 Pleurisy (principal); K21.9 Gastro-esophageal reflux disease without esophagitis; F41.9 Anxiety disorder, unspecified; F17.210 Nicotine dependence, cigarettes, uncomplicated; Z88.2 Allergy status to sulfonamides
CPT/HCPCS: 99282

== ENCOUNTER 2023-04-10 09:43 | Inpatient (IN) ==
[2023-04-10 10:39] LABS: Urine Creatinine Concentration 63.59 mg/dL (20.00-320.00)
[2023-04-10 10:44] LABS: Urine TP Creat Ratio 0.12 mg/mg
[2023-04-10 11:21] LABS: ABS Eosinophils 0.2 10^3/uL (0.0-0.5); ABS Lymphocytes 1.9 10^3/uL (1.0-4.8); ABS Monocytes 0.4 10^3/uL (0.0-0.9); ABS Neutrophils 6.1 10^3/uL (1.5-7.6); ABS Nucleated RBC 0.01 10^3/ul; Eosinophil % 2.1 %; Hematocrit 33.2 % (35-45); Hemoglobin 11.8 g/dL (11.5-14.3); Lymphocyte % 21.8 %; Mean Corpuscular Hemoglobin 33.6 pg (27-33); Mean Corpuscular Hgb Conc 35.5 g/dL (31-36); Mean Corpuscular Volume 94.7 fL (80-97); Mean Platelet Volume 9.3 fL (7.5-11.2); Nucleated Red Blood Cells % 0.1 /100 WBC (0.0-0.4); Platelet Count 145 10^3/uL (150-450); White Blood Count 8.6 10^3/uL (3.8-11.8)
[2023-04-10 11:52] LABS: Albumin 3.2 g/dL (3.2-5.2); Albumin/Globulin Ratio 1.3 (1-3); Calcium 8.9 mg/dL (8.6-10.3); Creatinine, Serum 0.54 mg/dL (0.51-0.95); Globulin 2.5 g/dL (2-4); Potassium 3.3 mmol/L (3.5-5.0); Total Bilirubin 0.3 mg/dL (0.2-1.0); Total Protein 5.7 g/dL (6.4-8.9); eGFR CKD-EPI 123.8 (>60)
[2023-04-10] MEDS ORDERED: Lactated Ringers 1000 ml BAG 1,000 ML IV ONE (14:56)
[2023-04-10] MEDS ORDERED: Dinoprostone 10 MG VAG.SUPP VAGINAL ONE (14:56)
[2023-04-10] MEDS ORDERED: Buffered Lidocaine 1% SYRIN 1 ml INTRADERM ONE (14:56)
[2023-04-10] MEDS ORDERED: Promethazine INJ(RESTRICTED) 25 MG/ML 1 ml VIAL IV PRN (14:56)
[2023-04-10 15:28] LABS: Urine Appearance Clear; Urine Bilirubin Negative (Negative); Urine Blood Negative (Negative); Urine Color Yellow; Urine Glucose Negative (Negative); Urine Ketones Negative (Negative); Urine Nitrite Negative (Negative); Urine Protein Negative (Negative); Urine Specific Gravity 1.009 (1.002-1.030); Urine Urobilinogen Negative (Negative)
[2023-04-10 16:36] LABS: Urine Benzodiazepine Screen None Detected (None Detect); Urine Opiates Screen None Detected (None Detect)
[2023-04-10] MEDS: Buprenorp/Nalox 8-2 MG FILM SL PRN (21:40)
[2023-04-10] MEDS: Nicotine GUM 4MG FRUIT FLAVOR PO PRN (21:40)
[2023-04-11] MEDS ORDERED: miSOPROStol 100 mcg TAB ONE (09:20)
[2023-04-11] MEDS: Buprenorp/Nalox 8-2 MG FILM SL PRN ×2 (09:55→15:43)
[2023-04-11] MEDS ORDERED: Buprenorp/Nalox 8-2 MG FILM SL SCH (10:00)
[2023-04-11] MEDS ORDERED: Oxytocin in LR 20,000 MILLI.UNIT/1,000 ML BAG IV SCH (14:00)
[2023-04-11] MEDS: Nicotine GUM 4MG FRUIT FLAVOR PO PRN (14:51)
[2023-04-11] MEDS: Lactated Ringers 1000 ml BAG 1,000 ML IV SCH (14:52)
[2023-04-12 00:27] LABS: Albumin 3.3 g/dL (3.2-5.2); Albumin/Globulin Ratio 1.5 (1-3); Calcium 9.1 mg/dL (8.6-10.3); Creatinine, Serum 0.56 mg/dL (0.51-0.95); Globulin 2.2 g/dL (2-4); Potassium 3.5 mmol/L (3.5-5.0); Total Bilirubin 0.3 mg/dL (0.2-1.0); Total Protein 5.5 g/dL (6.4-8.9); eGFR CKD-EPI 122.7 (>60)
[2023-04-12 01:46] LABS: ABS Eosinophils 0.2 10^3/uL (0.0-0.5); ABS Lymphocytes 1.5 10^3/uL (1.0-4.8); ABS Monocytes 0.7 10^3/uL (0.0-0.9); ABS Neutrophils 7.7 10^3/uL (1.5-7.6); Eosinophil % 1.7 %; Hematocrit 31.7 % (35-45); Hemoglobin 11.3 g/dL (11.5-14.3); Mean Corpuscular Hgb Conc 35.5 g/dL (31-36); Mean Corpuscular Volume 92.9 fL (80-97); Mean Platelet Volume 9.9 fL (7.5-11.2); Platelet Count 127 10^3/uL (150-450); Red Blood Count 3.41 10^6/uL (3.63-4.92); Red Cell Distribution Width 13.8 % (12-17); White Blood Count 10.1 10^3/uL (3.8-11.8)
[2023-04-12] MEDS ORDERED: Lidocaine 2% w/ EPI 1:200,000 MPF 20 ML SDV VIAL ONE (02:04)
[2023-04-12] MEDS ORDERED: OBEPIDURAL (200 ML) 200 ML EPIDURAL ONE ×2 (02:04→18:30)
[2023-04-12] MEDS: OBEPIDURAL (200 ML) 200 ML EPIDURAL SCH ×2 (02:43→18:31)
[2023-04-12] MEDS ORDERED: Sodium Citrate/Citric Acid LIQ 15 ML UDC PO PRN (02:54)
[2023-04-12] MEDS ORDERED: Lactated Ringers 1000 ml BAG 1,000 ML IV ONE (02:54)
[2023-04-12] MEDS ORDERED: Phenylephrine 40 mcg/mL 10mL (400mcg) SYRINGE IV PUSH PRN ×2 (02:54)
[2023-04-12] MEDS ORDERED: Lactated Ringers 1000 ml BAG 1,000 ML IV SCH ×2 (03:00→21:00)
[2023-04-12 03:44] LABS: Urine Appearance Clear; Urine Bilirubin Negative (Negative); Urine Blood Negative (Negative); Urine Color Yellow; Urine Glucose Negative (Negative); Urine Ketones Negative (Negative); Urine Nitrite Negative (Negative); Urine Protein Negative (Negative); Urine Specific Gravity 1.005 (1.002-1.030); Urine Urobilinogen Negative (Negative)
[2023-04-12] MEDS: Lactated Ringers 1000 ml BAG 1,000 ML IV SCH (04:18)
[2023-04-12] MEDS: Buprenorp/Nalox 8-2 MG FILM SL PRN ×2 (10:39→21:56)
[2023-04-12 12:24] LABS: ABS Eosinophils 0.1 10^3/uL (0.0-0.5); ABS Lymphocytes 1.1 10^3/uL (1.0-4.8); ABS Monocytes 0.7 10^3/uL (0.0-0.9); ABS Neutrophils 11.1 10^3/uL (1.5-7.6); ABS Nucleated RBC 0.01 10^3/ul; Eosinophil % 0.9 %; Hematocrit 31.7 % (35-45); Hemoglobin 11.4 g/dL (11.5-14.3); Lymphocyte % 8.7 %; Mean Corpuscular Hemoglobin 33.4 pg (27-33); Mean Corpuscular Hgb Conc 35.9 g/dL (31-36); Mean Corpuscular Volume 93.2 fL (80-97); Nucleated Red Blood Cells % 0.1 /100 WBC (0.0-0.4); Platelet Count Platelets clumped. 10^3/uL (150-450); Red Blood Count 3.41 10^6/uL (3.63-4.92); Red Cell Distribution Width 14.2 % (12-17); White Blood Count 13.1 10^3/uL (3.8-11.8)
[2023-04-12 12:40] LABS: Calcium 8.6 mg/dL (8.6-10.3); Potassium 3.6 mmol/L (3.5-5.0); Total Bilirubin 0.4 mg/dL (0.2-1.0)
[2023-04-12 12:45] LABS: Albumin/Globulin Ratio 1.4 (1-3); Creatinine, Serum 0.67 mg/dL (0.51-0.95); Globulin 2.1 g/dL (2-4); Total Protein 5.1 g/dL (6.4-8.9); eGFR CKD-EPI 117.5 (>60)
[2023-04-12 14:20] LABS: Mean Platelet Volume 9.5 fL (7.5-11.2); Platelet Count 126 10^3/uL (150-450)
[2023-04-12] MEDS ORDERED: Bupivacaine 0.25% w/EPI 10 ML SDV ONE (15:57)
[2023-04-12] MEDS ORDERED: Dibucaine 1% OINT 28.35 GM TUBE PR PRN (20:42)
[2023-04-12] MEDS ORDERED: Measles, Mumps,Rubella VACC 0.5 ML/VIAL SUBCUT ONE (20:42)
[2023-04-12] MEDS ORDERED: Witch Hazel PAD JAR TOPICAL PRN (20:42)
[2023-04-12] MEDS ORDERED: Oxytocin in LR 20,000 MILLI.UNIT/1,000 ML BAG IV SCH (20:45)
[2023-04-13 07:19] LABS: ABS Lymphocytes 1.4 10^3/uL (1.0-4.8); ABS Monocytes 0.9 10^3/uL (0.0-0.9); ABS Neutrophils 14.8 10^3/uL (1.5-7.6); ABS Nucleated RBC 0.01 10^3/ul; Eosinophil % 0.2 %; Hematocrit 27.1 % (35-45); Hemoglobin 9.5 g/dL (11.5-14.3); Lymphocyte % 8.2 %; Mean Corpuscular Hemoglobin 33.2 pg (27-33); Mean Corpuscular Hgb Conc 35.2 g/dL (31-36); Mean Corpuscular Volume 94.4 fL (80-97); Platelet Count 160 10^3/uL (150-450); Red Blood Count 2.87 10^6/uL (3.63-4.92); Red Cell Distribution Width 13.7 % (12-17); White Blood Count 17.1 10^3/uL (3.8-11.8)
[2023-04-13] MEDS: Buprenorp/Nalox 8-2 MG FILM SL PRN ×2 (08:04→20:40)
[2023-04-13] MEDS ORDERED: Measles, Mumps,Rubella VACC 0.5 ML/VIAL SUBCUT ONE ×2 (16:00→17:15)
[2023-04-14] MEDS: Buprenorp/Nalox 8-2 MG FILM SL PRN (08:47)
[2023-04-14 09:24] VITALS: BP 123/64
== END 2023-04-14 13:35 | disposition home or self-care (01) | DRG 560 ==
LOC: MCHOBOUT 09:43 → MCHOB 15:00
PROVIDERS: ADMIT Registered Nurse; ATTEND Registered Nurse